=== PATIENT | female | born 1975 | race Caucasian/White ===

== ENCOUNTER → 2016-06-01 | Outpatient (CLI) | payer OTHER ==
[2016-06-01 13:38] LABS: CHLORIDE,CL 110 mmol/L (98-110); SODIUM,NA 143 mmol/L (136-146)
== END ==
LOC: MW.CHOBGYN 11:55
PROVIDERS: ATTEND Nurse Practitioner Women's Health
DX: R16.1 Splenomegaly, not elsewhere classified (principal)
CPT/HCPCS: 36415; 80053; 83615; 85025; 85610; 85652; 85730; 88104

== ENCOUNTER → 2016-06-16 | Outpatient (CLI) | payer OTHER ==
--- NOTE | 2016-06-16 10:55 | CR ---
EXAMINATION: Two-view chest (PA and Lateral views). HISTORY: Respiratory disorder. FINDINGS: The trachea is midline. The cardiomediastinal silhouette is within normal limits. No pulmonary infil trates, effusions or pneumothorax. Osseous structures appear unremarkable. IMPRESSION: No acute cardiopulmonary process.
== END ==
LOC: MW.CHOBGYN 10:21
PROVIDERS: ATTEND Nurse Practitioner Women's Health
DX: J98.8 Other specified respiratory disorders (principal)
CPT/HCPCS: 36415; 71020; 71020-26; 85025; 87804

== ENCOUNTER → 2016-06-22 | Outpatient (CLI) | payer OTHER ==
--- NOTE | 2016-06-22 10:46 | CR ---
EXAMINATION: Two-view chest (PA and Lateral views). HISTORY: Influenza. FINDINGS: The trachea is midline. The cardiomediastinal silhouette is within normal limits. No pulmonary infil trates, effusions or pneumothorax. Osseous structures appear unremarkable. IMPRESSION: No acute cardiopulmonary process.
== END ==
LOC: MW.CHOBGYN 09:55
PROVIDERS: ATTEND Nurse Practitioner Women's Health
DX: J10.1 Influenza due to other identified influenza virus with other respiratory manifestations (principal)
CPT/HCPCS: 71020; 71020-26

== ENCOUNTER 2016-07-12 04:00 | Emergency (ER) | payer OTHER ==
[2016-07-12] MEDS ORDERED: Ketorolac 60 MG/2 ML SDV IM ONE (04:44)
--- NOTE | 2016-07-12 05:19 | EDM.PDOC ---
ED HPI GENERAL MEDICAL PROBLEM - General Chief Complaint: Back Pain or Injury Stated Complaint: AMBULANCE Time Seen by Provider: 07/12/16 05:13 - History of Present Illness INITIAL COMMENTS - FREE TEXT/NARRATIVE: HISTORY AND PHYSICAL: History of present illness: Patient 41-year-old white female presents status post low back injury this occurred when she was handling the dog the dog pulled her down 5 stairs no numbness weakness patient denies incontinence in the emergency department patient states she has beers to urinate but is unable she reports no urinary retention prior to this episode Review of systems: As per history of present illness and below otherwise all systems reviewed and negative. Past medical history: As per history of present illness and as reviewed below otherwise noncontributory. Surgical history: As per history of present illness and as reviewed below otherwise noncontributory. Social history: No reported history of drug or alcohol abuse. Family history: As per history of present illness and as reviewed below otherwise noncontributory. Physical exam: HEENT: Atraumatic, normocephalic, pupils reactive, negative for conjunctival pallor or scleral icterus, mucous membranes moist, throat clear, neck supple, nontender, trachea midline. Lungs: Clear to auscultation, breath sounds equal bilaterally, chest nontender. Heart: S1S2, regular, negative for clicks, rubs, or JVD. Abdomen: Soft, nondistended, nontender. Negative for masses or hepatosplenomegaly. Negative for costovertebral tenderness. Pelvis: Stable nontender. Genitourinary: Deferred. Rectal: Normal tone sensory intact Extremities: Atraumatic, negative for cords or calf pain. Neurovascular unremarkable. Neuro: Awake, alert, oriented. Cranial nerves II through XII unremarkable. Cerebellum unremarkable. Motor and sensory unremarkable throughout. Exam nonfocal. Back: She had some mild tenderness in paravertebral region of the lumbar spine no vertebral body or point tenderness patient is able to stand on her toes back on her heels motor and sensory Limited but grossly unremarkable Diagnostics: X-ray lumbar Therapeutics: Toradol 60 mg IM Dilaudid 1 mg IV Zofran 4 mg IV Impression: #1 acute low back injury #2 history of degenerative disc disease #3 urinary retention Case discussed with [facility] and [place] one call discussion regarding clinical statement and likely need for imaging unavailable here transfer to emergency department via ground agreed-upon discussed with patient and significant other who agree Definitive disposition and diagnosis as appropriate pending reevaluation and review of above. lower back Pain Score (Numeric/FACES): 10 - Related Data Allergies Allergy/AdvReac Type Severity Reaction Status Date / Time acetaminophen [From Tylenol] Allergy Unknown Headache Verified 07/12/16 04:13 aspirin Allergy Unknown Swelling Verified 07/12/16 04:13 piroxicam [From Feldene] Allergy Unknown Swelling Verified 07/12/16 04:13 valacyclovir HCl Allergy Unknown Hallucinati Verified 07/12/16 04:13 [From Valtrex] ons surgical tape Allergy Mild Blisters Uncoded 07/12/16 04:13 Home Meds: Home Meds Omeprazole [Prilosec] 40 mg PO DAILY 07/02/13 [History] HYDROmorphone [Dilaudid] 2 mg PO ASDIRECTED PRN 04/09/16 [History] Diclofenac Sodium [Voltaren] 1 tab PO Q8HR 07/12/16 [History] Past Medical History - Past Health History Medical/Surgical History: Denies Medical/Surgical History Other HEENT History: wears glasses/contacts Cardiovascular History: Reports: None Respiratory History: Reports: Sleep apnea Other Respiratory History: Pt on CPAP at home Gastrointestinal History: Reports: GERD Genitourinary History: Reports: None 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: Reports: None Musculoskeletal History: Reports: Back pain, chronic Other Musculoskeletal History: states has herniated discs to back Neurological History: Reports: Migraines Psychiatric History: Reports: None Endocrine/Metabolic History: Reports: Obesity/BMI 30+ Hematologic History: Reports: None Immunologic History: Reports: None Oncologic (Cancer) History: Reports: None Dermatologic History: Reports: None - Infectious Disease History Infectious Disease History: Reports: None - Past Surgical History Head Surgeries/Procedures: Reports: None GI Surgical History: Reports: Cholecystectomy Female Surgical History: Reports: Hysterectomy Other Female Surgeries/Procedures: states "partial hysterectomy" Social & Family History - Family History Family Medical History: Noncontributory Cardiac: Reports: Heart failure, [place] Neurological: Reports: CVA - Tobacco Use Smoking Status *Q: Current Every Day Smoker Years of Tobacco use: 22 Packs/Tins Daily: 0.5 Used Tobacco, but Quit: No Second Hand Smoke Exposure: Yes - Caffeine Use Caffeine Use: Reports: Coffee, Energy drinks Caffeine Use Comment: 2drinks/day - Alcohol Use Days Per Week of Alcohol Use: 1 Number of Drinks Per Day: 3 Total Drinks Per Week: 3 - Recreational Drug Use Recreational Drug Use: No - Living Situation & Occupation Living situation: Reports: 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 ED EXAM, GENERAL - Physical Exam Exam: See Below (See dictation) Course - Vital Signs Last Recorded V/S: Last Vital Signs Temp 36.9 C 07/12/16 04:14 Pulse 86 07/12/16 04:14 Resp 20 07/12/16 04:14 BP 122/58 L 07/12/16 04:14 Pulse Ox 94 L 07/12/16 04:14 - Orders/Labs/Meds Orders: Active Orders 24 hr Category Date Time Status Lumbar Spine 2 or 3V [CR] Stat Exams 07/12/16 04:22 Taken Meds: Medications Discontinued Medications Generic Name Dose Route Start Last Admin Trade Name Freq PRN Reason Stop Dose Admin Ketorolac Tromethamine 60 mg 07/12/16 04:44 07/12/16 04:49 Toradol IM 07/12/16 04:45 60 mg ONETIME ONE Administration Departure - Departure Time of Disposition: 05:52 Disposition: DC/Tfer to Acute Hospital 02 Condition: undetermined Clinical Impression: Low back pain, Urinary retention Forms: ED Department Discharge - My Orders Last 24 Hours: My Active Orders 07/12/16 04:22 Lumbar Spine 2 or 3V [CR] Stat - Assessment/Plan Last 24 Hours: My Active Orders 07/12/16 04:22 Lumbar Spine 2 or 3V [CR] Stat
[2016-07-12] MEDS ORDERED: HYDROmorphone 2 MG/ML Syringe IVPUSH ONE (05:53)
[2016-07-12] MEDS ORDERED: Ondansetron 4 MG/2 ML SDV IVPUSH ONE (05:53)
[2016-07-12] MEDS ORDERED: Sodium Chloride 0.9% 1,000 ML IV SCH (06:00)
[2016-07-12 07:00] VITALS: BP 118/69
--- NOTE | 2016-07-13 10:42 | CR ---
EXAM DATE: 07/12/16 PATIENT'S AGE: 41 Patient: RIGO REINA Facility: [place], [place] Site . Site : 1975 Study: XRay Spine Lumbar [id number]/[id number] 5:14:18 AM Ordering Physician: Doctor Baker Final Report: HISTORY: Fall, low back pain. TECHNIQUE: Three views of the lumbar spine. COMPARISON: 05/25/2014. FINDINGS: Five lumbar type vertebral bodies. There is no lumbar fracture or malalignment. Loss of intervertebral disc height at L5-S1 greater than L4-L5 as before. IMPRESSION: 1. No acute fracture. 2. Degenerative disc disease within the lumbar spine. Dictated by Demetrius Deras MD @ 07/12/2016 5:47:13 AM Dictated by: Demetirus Deras MD @ 07/12/2016 05:47:18 (Electronic Signature) Report Signed by Proxy and Original Signed Document filed in the Medical Record. TIKA
== END 2016-07-12 06:50 ==
LOC: MW.ED 04:00
DX: S39.92XA Unspecified injury of lower back, initial encounter (principal); R33.9 Retention of urine, unspecified; K21.9 Gastro-esophageal reflux disease without esophagitis; E66.9 Obesity, unspecified; F17.210 Nicotine dependence, cigarettes, uncomplicated; Z79.82 Long term (current) use of aspirin; Z88.8 Allergy status to other drugs, medicaments and biological substances; Z88.6 Allergy status to analgesic agent; Z79.899 Other long term (current) drug therapy; Z90.49 Acquired absence of other specified parts of digestive tract; Z90.710 Acquired absence of both cervix and uterus; W10.9XXA Fall (on) (from) unspecified stairs and steps, initial encounter
CPT/HCPCS: 51702; 72100; 96372; 96374; 96375; 99284; J1170; J1885; J2405; J7040; 99285

== ENCOUNTER → 2016-07-21 | Outpatient (CLI) | payer OTHER ==
[2016-07-21 10:28] LABS: CHLORIDE,CL 109 mmol/L (98-110); SODIUM,NA 141 mmol/L (136-146)
== END ==
LOC: MW.CHOBGYN 09:54
PROVIDERS: ATTEND Nurse Practitioner Women's Health
DX: M79.1 Myalgia (principal)
CPT/HCPCS: 36415; 80053; 85652; 86038; 86140; 86430; 86618

== ENCOUNTER → 2016-08-10 | Outpatient (CLI) | payer OTHER | LOC: MW.CHOBGYN 15:12 | PROVIDERS: ATTEND Nurse Practitioner Women's Health | DX: R10.9 Unspecified abdominal pain (principal) | CPT/HCPCS: 81001 ==

== ENCOUNTER 2017-06-13 22:34 | Emergency (ER) | payer OTHER ==
[2017-06-13] MEDS ORDERED: Ondansetron 4 MG/2 ML SDV IVPUSH ONE (22:37)
[2017-06-13] MEDS ORDERED: Sodium Chloride 0.9% 1,000 ML IV ONE (22:37)
--- NOTE | 2017-06-13 22:39 | EDM.PDOC ---
ED HPI GENERAL MEDICAL PROBLEM - General Chief Complaint: Gastrointestinal Problem Stated Complaint: PT HAS FLU SYMPTOMS Time Seen by Provider: 06/13/17 22:36 - History of Present Illness INITIAL COMMENTS - FREE TEXT/NARRATIVE: HISTORY AND PHYSICAL: History of present illness: Patient 42-year-old female presents with concern vomiting diarrhea 1 week she' s had body aches states she's had no fever no cough shortness breath or other concern Review of systems: As per history of present illness and below otherwise all systems reviewed and negative. Past medical history: As per history of present illness and as reviewed below otherwise noncontributory. Surgical history: As per history of present illness and as reviewed below otherwise noncontributory. Social history: No reported history of drug or alcohol abuse. Family history: As per history of present illness and as reviewed below otherwise noncontributory. Physical exam: HEENT: Atraumatic, normocephalic, pupils reactive, negative for conjunctival pallor or scleral icterus, mucous membranes dry, throat clear, neck supple, nontender, trachea midline. Lungs: Clear to auscultation, breath sounds equal bilaterally, chest nontender. Heart: S1S2, regular, negative for clicks, rubs, or JVD. Abdomen: Soft, nondistended, nontender. Negative for masses or hepatosplenomegaly. Negative for costovertebral tenderness. Pelvis: Stable nontender. Genitourinary: Deferred. Rectal: Deferred. Extremities: Atraumatic, negative for cords or calf pain. Neurovascular unremarkable. Neuro: Awake, alert, oriented. Cranial nerves II through XII unremarkable. Cerebellum unremarkable. Motor and sensory unremarkable throughout. Exam nonfocal. Diagnostics: CBC CMP influenza screen Therapeutics: saline 1 L bolus Zofran 4 mg IV Impression: #1 vomiting/diarrhea with dehydration #2 viral syndrome Definitive disposition and diagnosis as appropriate pending reevaluation and review of above. - Related Data Allergies Allergy/AdvReac Type Severity Reaction Status Date / Time acetaminophen [From Tylenol] Allergy Unknown Headache Verified 07/12/16 04:13 aspirin Allergy Unknown Swelling Verified 07/12/16 04:13 piroxicam [From Feldene] Allergy Unknown Swelling Verified 07/12/16 04:13 valacyclovir HCl Allergy Unknown Hallucinati Verified 07/12/16 04:13 [From Valtrex] ons surgical tape Allergy Mild Blisters Uncoded 07/12/16 04:13 Home Meds: Home Meds Omeprazole [Prilosec] 40 mg PO DAILY 07/02/13 [History] HYDROmorphone [Dilaudid] 2 mg PO ASDIRECTED PRN 04/09/16 [History] Diclofenac Sodium [Voltaren] 1 tab PO Q8HR 07/12/16 [History] Past Medical History - Past Health History Medical/Surgical History: Denies Medical/Surgical History Other HEENT History: wears glasses/contacts Cardiovascular History: Reports: None Respiratory History: Reports: Sleep Apnea Other Respiratory History: Pt on CPAP at home Gastrointestinal History: Reports: GERD Genitourinary History: Reports: None 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 Musculoskeletal History: Reports: Back Pain, Chronic Other Musculoskeletal History: states has herniated discs to back Neurological History: Reports: Migraines Psychiatric History: Reports: None Endocrine/Metabolic History: Reports: Obesity/BMI 30+ Hematologic History: Reports: None Immunologic History: Reports: None Oncologic (Cancer) History: Reports: None Dermatologic History: Reports: None - Infectious Disease History Infectious Disease History: Reports: None - Past Surgical History Head Surgeries/Procedures: Reports: None GI Surgical History: Reports: Cholecystectomy Female Surgical History: Reports: Hysterectomy Other Female Surgeries/Procedures: states "partial hysterectomy" Social & Family History - Family History Family Medical History: Noncontributory Cardiac: Reports: Heart Failure, [place] Neurological: Reports: CVA - Tobacco Use Smoking Status *Q: Current Every Day Smoker Years of Tobacco use: 22 Packs/Tins Daily: 0.5 Used Tobacco, but Quit: No Second Hand Smoke Exposure: Yes - Caffeine Use Caffeine Use: Reports: Coffee, Energy Drinks Caffeine Use Comment: 2drinks/day - Alcohol Use Days Per Week of Alcohol Use: 1 Number of Drinks Per Day: 3 Total Drinks Per Week: 3 - Recreational Drug Use Recreational Drug Use: No - Living Situation & Occupation Living situation: Reports: Occupation: Employed ED ROS GENERAL - Review of Systems Review Of Systems: ROS reveals no pertinent complaints other than HPI. ED EXAM, GENERAL - Physical Exam Exam: See Below (dictation) Departure - Departure Time of Disposition: 22:38 Disposition: Home, Self-Care 01 Condition: Good Clinical Impression: Vomiting, Diarrhea, Dehydration - Discharge Information Additional Instructions: The following information is given to patients seen in the emergency department who are being discharged to home. This information is to outline your options for follow-up care. We provide all patients seen in our emergency department with a follow-up referral. The need for follow-up, as well as the timing and circumstances, are variable depending upon the specifics of your emergency department visit. If you don't have a primary care physician on staff, we will provide you with a referral. We always advise you to contact your personal physician following an emergency department visit to inform them of the circumstance of the visit and for follow-up with them and/or the need for any referrals to a consulting specialist. The emergency department will also refer you to a specialist when appropriate. This referral assures that you have the opportunity for followup care with a specialist. All of these measure are taken in an effort to provide you with optimal care, which includes your followup. Under all circumstances we always encourage you to contact your private physician who remains a resource for coordinating your care. When calling for followup care, please make the office aware that this follow-up is from your recent emergency room visit. If for any reason you are refused follow-up, please contact the [facility] emergency department at and asked to speak to the emergency department charge nurse. Fluids clear liquids as directed follow-up private medical doctor as needed as discussed return as needed as discussed]
[2017-06-13 23:14] LABS: CHLORIDE,CL 104 mmol/L (98-107); SODIUM,NA 138 mmol/L (136-145)
[2017-06-14 00:23] VITALS: BP 147/93
== END 2017-06-14 00:15 | disposition home or self-care (01) ==
LOC: MW.ED 22:34
DX: B34.9 Viral infection, unspecified (principal); R19.7 Diarrhea, unspecified; E86.0 Dehydration; Z88.8 Allergy status to other drugs, medicaments and biological substances; Z91.048 Other nonmedicinal substance allergy status
CPT/HCPCS: 36415; 80053; 85025; 87804; 96361; 96374; 99284; J2405; J7040

== ENCOUNTER 2017-07-29 12:37 | Emergency (ER) | payer OTHER ==
--- NOTE | 2017-07-29 13:06 | EDM.PDOC ---
ED HPI GENERAL MEDICAL PROBLEM - General Chief Complaint: Bite:Animal, Insect Stated Complaint: GOT BIT BY A DOG Time Seen by Provider: 07/29/17 13:06 Source of Information: Reports: Patient History Limitations: Reports: No Limitations - History of Present Illness INITIAL COMMENTS - FREE TEXT/NARRATIVE: HISTORY AND PHYSICAL: History of present illness: Patient is a 42-year-old female who presents to the emergency room with complaints of a dog bite to her right anterior narvaez. 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 This dog's rabies vaccination status is unknown. Jessica has had a full rabies series completed in 2016. Her tetanus is up to date. Denies any numbness, tingling, fever, chills or shortness of breath. Review of systems: As per history of present illness and below otherwise all systems reviewed and negative. Past medical history: As per history of present illness and as reviewed below otherwise noncontributory. Surgical history: As per history of present illness and as reviewed below otherwise noncontributory. Social history: No reported history of drug or alcohol abuse. Family history: As per history of present illness and as reviewed below otherwise noncontributory. Physical exam: General: Well developed and well-nourished 42-year-old female. Alert and oriented. Nontoxic appearing and in no acute distress. HEENT: Atraumatic, normocephalic, pupils equal and reactive bilaterally, negative for conjunctival pallor or scleral icterus, mucous membranes moist, throat clear, neck supple, nontender, trachea midline. No drooling or trismus noted. No meningeal signs Lungs: Clear to auscultation, breath sounds equal bilaterally, chest nontender. Heart: S1S2, regular rate and rhythm without overt murmur Abdomen: Soft, nondistended, nontender. Negative for masses or hepatosplenomegaly. Negative for costovertebral tenderness. Pelvis: Stable nontender. Genitourinary: Deferred. Rectal: Deferred. Skin: Puncture wound/abrasion noted to right anterior narvaez. No surrounding erythema or soft tissue swelling noted. Otherwise skin is intact, warm, dry. No lesions or rashes noted. Extremities: Atraumatic, negative for cords or calf pain. Neurovascular unremarkable. Neuro: Awake, alert, oriented. Cranial nerves II through XII unremarkable. Cerebellum unremarkable. Motor and sensory unremarkable throughout. Exam nonfocal. Notes: Patient previously completed a full rabies series in 2016. According to the CDC and Up-to-date whom was previously vaccinated: needs 1 dose of the vaccine (IM in deltoid area) on day 0 and a second dose on day 3. This was called and verified with our pharmacy. Please see the patient on Augmentin. Wound care was provided. Signs and symptoms that would prompt her to come back to the emergency room were discussed. She voices understanding and is agreeable to plan of care. Denies any further questions at this time. Diagnostics: [] Therapeutics: Wound Care, Rabies Vaccine, Bacitracin Impression: Animal bite Plan: Keep the area clean and dry. Take your antibiotic as directed. Tylenol and/or ibuprofen as needed for pain management You need a repeat vaccine on 08/01/2017 (order was provided for you) Follow-up with your primary caregiver in the next 1-2 days. Return to the ED as needed and as discussed. Definitive disposition and diagnosis as appropriate pending reevaluation and review of above. Onset: Today Duration: Hour(s): Location: Reports: Lower Extremity, Right Right Leg Pain Score (Numeric/FACES): 3 - Related Data Allergies Allergy/AdvReac Type Severity Reaction Status Date / Time acetaminophen [From Tylenol] Allergy Unknown Headache Verified 07/29/17 13:07 aspirin Allergy Unknown Swelling Verified 07/29/17 13:07 piroxicam [From Feldene] Allergy Unknown Swelling Verified 07/29/17 13:07 valacyclovir HCl Allergy Unknown Hallucinati Verified 07/29/17 13:07 [From Valtrex] ons surgical tape Allergy Mild Blisters Uncoded 07/29/17 13:07 Home Meds: Home Meds Omeprazole [Prilosec] 20 mg PO DAILY 07/02/13 [History] Diclofenac Sodium [Voltaren] 1 tab PO BID 07/12/16 [History] Control 1 tab PO DAILY 06/13/17 [History] Pregabalin [Lyrica] 0 mg PO BID 06/13/17 [History] Past Medical History - Past Health History Medical/Surgical History: Denies Medical/Surgical History Other HEENT History: wears glasses/contacts Cardiovascular History: Reports: None Respiratory History: Reports: Sleep Apnea Other Respiratory History: Pt on CPAP at home Gastrointestinal History: Reports: GERD Genitourinary History: Reports: None 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 Musculoskeletal History: Reports: Back Pain, Chronic Other Musculoskeletal History: states has herniated discs to back Neurological History: Reports: Migraines Psychiatric History: Reports: None Endocrine/Metabolic History: Reports: Obesity/BMI 30+ Hematologic History: Reports: None Immunologic History: Reports: None Oncologic (Cancer) History: Reports: None Dermatologic History: Reports: None - Infectious Disease History Infectious Disease History: Reports: None - Past Surgical History Head Surgeries/Procedures: Reports: None GI Surgical History: Reports: Cholecystectomy Female Surgical History: Reports: Hysterectomy Other Female Surgeries/Procedures: states "partial hysterectomy" Social & Family History - Family History Family Medical History: Noncontributory Cardiac: Reports: Heart Failure, [place] Neurological: Reports: CVA - Caffeine Use Caffeine Use: Reports: Coffee, Energy Drinks Caffeine Use Comment: 2drinks/day - Living Situation & Occupation Living situation: Reports: Occupation: Employed ED ROS GENERAL - Review of Systems Review Of Systems: ROS reveals no pertinent complaints other than HPI. ED EXAM, ANIMAL BITE - Physical Exam Exam: See Below (See dictation) Course - Vital Signs Last Recorded V/S: Last Vital Signs Temp 96.6 F 07/29/17 13:03 Pulse 59 L 07/29/17 13:03 Resp 18 07/29/17 13:03 BP 195/78 H 07/29/17 13:03 Pulse Ox 98 07/29/17 13:03 - Orders/Labs/Meds Orders: Active Orders 24 hr Category Date Time Status Communication Order [RC] STAT Care 07/29/17 13:25 Active Vaccines to be Administered [RC] PER UNIT ROUTINE Care 07/29/17 13:17 Active Meds: Medications Discontinued Medications Generic Name Dose Route Start Last Admin Trade Name Freq PRN Reason Stop Dose Admin Bacitracin 1 dose 07/29/17 13:26 07/29/17 13:36 Bacitracin Oint 1 Gm TOP 07/29/17 13:27 1 dose ONETIME ONE Administration Rabies Vaccine 2.5 unit 07/29/17 13:16 07/29/17 13:33 Rabavert IM 07/29/17 13:17 2.5 unit .ONCE ONE Administration Departure - Departure Time of Disposition: 13:23 Disposition: Home, Self-Care 01 Clinical Impression: Animal bite wound - Discharge Information Instructions: Animal Bite, [id number] Referrals: Vero Harrison FILE DRAWER FINISHER [Primary Care Provider] - Forms: ED Department Discharge Additional Instructions: The following information is given to patients seen in the emergency department who are being discharged to home. This information is to outline your options for follow-up care. We provide all patients seen in our emergency department with a follow-up referral. The need for follow-up, as well as the timing and circumstances, are variable depending upon the specifics of your emergency department visit. If you don't have a primary care physician on staff, we will provide you with a referral. We always advise you to contact your personal physician following an emergency department visit to inform them of the circumstance of the visit and for follow-up with them and/or the need for any referrals to a consulting specialist. The emergency department will also refer you to a specialist when appropriate. This referral assures that you have the opportunity for follow-up care with a specialist. All of these measure are taken in an effort to provide you with optimal care, which includes your follow-up. Under all circumstances we always encourage you to contact your private physician who remains a resource for coordinating your care. When calling for follow-up care, please make the office aware that this follow-up is from your recent emergency room visit. If for any reason you are refused follow-up, please contact the [facility] Emergency Department at and asked to speak to the emergency department charge nurse. [facility] [address] [place] [id number] Keep the area clean and dry. Take your antibiotic as directed. Tylenol and/or ibuprofen as needed for pain management You need a repeat vaccine on 08/01/2017 Follow-up with your primary caregiver in the next 1-2 days. Return to the ED as needed and as discussed. - My Orders Last 24 Hours: My Active Orders 07/29/17 13:17 Vaccines to be Administered [RC] PER UNIT ROUTINE 07/29/17 13:25 Communication Order [RC] STAT - Assessment/Plan Last 24 Hours: My Active Orders 07/29/17 13:17 Vaccines to be Administered [RC] PER UNIT ROUTINE 07/29/17 13:25 Communication Order [RC] STAT
[2017-07-29] MEDS ORDERED: Rabies Vaccine (Avian) 2.5 Unit Inj Kit IM ONE (13:16)
[2017-07-29] MEDS ORDERED: Bacitracin Oint 1 GM U/D Packet TOP ONE (13:26)
[2017-07-29 14:19] VITALS: BP 143/98
== END 2017-07-29 14:07 | disposition home or self-care (01) ==
LOC: MW.ED 12:37
DX: S81.851A Open bite, right lower leg, initial encounter (principal); Z88.6 Allergy status to analgesic agent; Z88.8 Allergy status to other drugs, medicaments and biological substances; Z79.899 Other long term (current) drug therapy; Z23 Encounter for immunization; W54.0XXA Bitten by dog, initial encounter
CPT/HCPCS: 90471; 90675; 99283-25

== ENCOUNTER 2017-10-30 17:06 | Emergency (ER) | payer OTHER ==
[2017-10-30 17:16] VITALS: BP 129/86
--- NOTE | 2017-10-30 17:26 | EDM.PDOC ---
ED HPI GENERAL MEDICAL PROBLEM - General Chief Complaint: Genitourinary Problem Stated Complaint: UNABLE TO URINATE Time Seen by Provider: 10/30/17 17:24 Source of Information: Reports: Patient History Limitations: Reports: No Limitations - History of Present Illness INITIAL COMMENTS - FREE TEXT/NARRATIVE: HISTORY AND PHYSICAL: History of present illness: Patient is a 42-year-old female who presents to the emergency room with complaints of dysuria, pelvic pressure and frequency over the past 24 hours. She states she was treated on 10/18/17 for a UTI with Macrobid and felt that her symptoms improved. She has completed her antibiotics 4 days ago and had been feeling well until yesterday. Eyes any fever, chills, chest pain, shortness of breath or cough. Denies any abdominal pain, nausea, vomiting, diarrhea or constipation. Denies any history of diabetes. Review of systems: As per history of present illness and below otherwise all systems reviewed and negative. Past medical history: As per history of present illness and as reviewed below otherwise noncontributory. Surgical history: As per history of present illness and as reviewed below otherwise noncontributory. Social history: No reported history of drug or alcohol abuse. Family history: As per history of present illness and as reviewed below otherwise noncontributory. Physical exam: General: Well-developed and well-nourished 42-year-old female. Alert and oriented. Nontoxic appearing and in no acute distress. HEENT: Atraumatic, normocephalic, pupils equal and reactive bilaterally, negative for conjunctival pallor or scleral icterus, mucous membranes moist, throat clear, neck supple, nontender, trachea midline. No drooling or trismus noted. No meningeal signs Lungs: Clear to auscultation, breath sounds equal bilaterally, chest nontender. Heart: S1S2, regular rate and rhythm without overt murmur Abdomen: Soft, nondistended, nontender. Negative for masses or hepatosplenomegaly. Negative for costovertebral tenderness. Pelvis: Stable nontender. Genitourinary: Deferred. Rectal: Deferred. Skin: Intact, warm, dry. No lesions or rashes noted. Extremities: Atraumatic, negative for cords or calf pain. Neurovascular unremarkable. Neuro: Awake, alert, oriented. Cranial nerves II through XII unremarkable. Cerebellum unremarkable. Motor and sensory unremarkable throughout. Exam nonfocal. Notes: Patient expresses concern as this is her second UTI ever. She has never previously had any genitourinary problems or concerns. Bedside glucose is 80 Patient does have a UTI. She has no fever or flank pain. Will do outpatient oral antibiotics. 1 g Rocephin IM here Cipro 500 mg twice a day 7 days. Urine culture was added. Ends and symptoms that would prompt her to return to the emergency room were reviewed and discussed. She voices understanding and is agreeable to plan of care. Denies any further questions at this time. Diagnostics: UA, blood glucose Therapeutics: Roceftin 1 g IM Prescription: Cipro Pyridium Impression: UTI Plan: 1. Take your medication as directed. 2. Increase your oral fluids. 3. Follow-up with your primary caregiver in the next 1-2 days. Return to the ED as needed and as discussed. Definitive disposition and diagnosis as appropriate pending reevaluation and review of above. Duration: Day(s): Location: Reports: Pelvis Urethra Pain Score (Numeric/FACES): 10 - Related Data Allergies Allergy/AdvReac Type Severity Reaction Status Date / Time acetaminophen [From Tylenol] Allergy Unknown Headache Verified 10/30/17 17:16 aspirin Allergy Unknown Swelling Verified 10/30/17 17:16 piroxicam [From Feldene] Allergy Unknown Swelling Verified 10/30/17 17:16 valacyclovir HCl Allergy Unknown Hallucinati Verified 10/30/17 17:16 [From Valtrex] ons surgical tape Allergy Mild Blisters Uncoded 10/30/17 17:16 Home Meds: Home Meds Omeprazole [Prilosec] 20 mg PO DAILY 07/02/13 [History] Pregabalin [Lyrica] 100 mg PO BID 06/13/17 [History] Ciprofloxacin HCl [Cipro] 500 mg PO BID #14 tablet 10/30/17 [Rx] Ergocalciferol (Vitamin D2) [Vitamin D2] 800 unit PO DAILY 10/30/17 [History] Phenazopyridine [Pyridium] 100 mg PO TID PRN 2 Days #6 tab 10/30/17 [Rx] Turmeric Root Extract [Turmeric] 500 mg PO DAILY 10/30/17 [History] Vitamin B Complex & Vit C No.4 [Super B Complex] 150 mg PO DAILY 10/30/17 [ History] Past Medical History - Past Health History Medical/Surgical History: Denies Medical/Surgical History HEENT History: Reports: Other (See Below) Other HEENT History: wears glasses/contacts Cardiovascular History: Reports: None Respiratory History: Reports: Sleep Apnea Other Respiratory History: Pt on CPAP at home Gastrointestinal History: Reports: GERD Genitourinary History: Reports: None HEALTH ANALYST History: Reports: None Musculoskeletal History: Reports: Back Pain, Chronic Other Musculoskeletal History: states has herniated discs to back Neurological History: Reports: Migraines Psychiatric History: Reports: None Endocrine/Metabolic History: Reports: Obesity/BMI 30+ Hematologic History: Reports: None Immunologic History: Reports: None Oncologic (Cancer) History: Reports: None Dermatologic History: Reports: None - Infectious Disease History Infectious Disease History: Reports: Measles - Past Surgical History Head Surgeries/Procedures: Reports: None GI Surgical History: Reports: Cholecystectomy Female Surgical History: Reports: Hysterectomy Other Female Surgeries/Procedures: states "partial hysterectomy" Social & Family History - Family History Family Medical History: Noncontributory Cardiac: Reports: Heart Failure, [place] Neurological: Reports: CVA - Tobacco Use Smoking Status *Q: Current Every Day Smoker Years of Tobacco use: 29 Packs/Tins Daily: 1 - Caffeine Use Caffeine Use: Reports: Coffee Caffeine Use Comment: 2drinks/day - Recreational Drug Use Recreational Drug Use: No - Living Situation & Occupation Living situation: Reports: Occupation: Employed ED ROS GENERAL - Review of Systems Review Of Systems: ROS reveals no pertinent complaints other than HPI. ED EXAM, RENAL/ - Physical Exam Exam: See Below (See dictation) Course - Vital Signs Last Recorded V/S: Last Vital Signs Temp 97.5 F 10/30/17 17:14 Pulse 70 10/30/17 17:14 Resp 12 10/30/17 17:14 BP 129/86 10/30/17 17:14 Pulse Ox 95 10/30/17 17:14 - Orders/Labs/Meds Orders: Active Orders 24 hr Category Date Time Status Glucose [Blood Glucose Check, Bedside] [RC] ONETIME Care 10/30/17 17:47 Active CULTURE URINE [RM] Stat Lab 10/30/17 18:01 Ordered UA W/MICROSCOPIC [URIN] Stat Lab 10/30/17 17:25 Ordered Labs: Laboratory Tests 10/30/17 10/30/17 Range/Units 17:25 17:49 POC Glucose 80 (60-110) mg/dL Urine Color YELLOW Urine Appearance SLT CLOUDY Urine pH 6.0 (5.0-8.0) Ur Specific [place] 1.025 (1.001-1.035) Urine Protein TRACE (NEGATIVE) mg/dL Urine Glucose (UA) NEGATIVE (NEGATIVE) mg/dL Urine Ketones NEGATIVE (NEGATIVE) mg/dL Urine Occult Blood SMALL H (NEGATIVE) Urine Nitrite POSITIVE H (NEGATIVE) Urine Bilirubin NEGATIVE (NEGATIVE) Urine Urobilinogen 0.2 (<2.0) EU/dL Ur Leukocyte Esterase LARGE (NEGATIVE) Urine RBC 2-4 (0-2/HPF) Urine WBC TO NUMEROUS TO COUNT H (0-5/HPF) Ur Epithelial Cells FEW (NONE-FEW) Urine Bacteria 1+ H (NEGATIVE) Meds: Medications Discontinued Medications Generic Name Dose Route Start Last Admin Trade Name Freq PRN Reason Stop Dose Admin Ceftriaxone Sodium 1,000 mg/ 4 mls @ 4 mls/sec 10/30/17 18:01 Lidocaine HCl IM 10/30/17 18:02 ONETIME ONE Departure - Departure Time of Disposition: 18:06 Disposition: Home, Self-Care 01 Clinical Impression: UTI, Urinary tract infectious disease - Discharge Information Prescriptions: Ciprofloxacin HCl [Cipro] 500 mg PO BID #14 tablet Phenazopyridine [Pyridium] 100 mg PO TID PRN 2 Days #6 tab PRN Reason: Dysuria Instructions: Urinary Tract Infection, Adult, [id number] Referrals: PCP,None [Primary Care Provider] - Forms: ED Department Discharge Additional Instructions: The following information is given to patients seen in the emergency department who are being discharged to home. This information is to outline your options for follow-up care. We provide all patients seen in our emergency department with a follow-up referral. The need for follow-up, as well as the timing and circumstances, are variable depending upon the specifics of your emergency department visit. If you don't have a primary care physician on staff, we will provide you with a referral. We always advise you to contact your personal physician following an emergency department visit to inform them of the circumstance of the visit and for follow-up with them and/or the need for any referrals to a consulting specialist. The emergency department will also refer you to a specialist when appropriate. This referral assures that you have the opportunity for follow-up care with a specialist. All of these measure are taken in an effort to provide you with optimal care, which includes your follow-up. Under all circumstances we always encourage you to contact your private physician who remains a resource for coordinating your care. When calling for follow-up care, please make the office aware that this follow-up is from your recent emergency room visit. If for any reason you are refused follow-up, please contact the [facility] Emergency Department at and asked to speak to the emergency department charge nurse. [facility] [address] [place] [id number] Take the antibiotic as directed. (Received Rocephin IM while here) Increase her oral fluids. Follow-up with your primary care provider in the next 1-2 days. Return to the ED as needed and as discussed. - My Orders Last 24 Hours: My Active Orders 10/30/17 17:25 UA W/MICROSCOPIC [URIN] Stat 10/30/17 17:47 Glucose [Blood Glucose Check, Bedside] [RC] ONETIME 10/30/17 18:01 CULTURE URINE [RM] Stat - Assessment/Plan Last 24 Hours: My Active Orders 10/30/17 17:25 UA W/MICROSCOPIC [URIN] Stat 10/30/17 17:47 Glucose [Blood Glucose Check, Bedside] [RC] ONETIME 10/30/17 18:01 CULTURE URINE [RM] Stat
[2017-10-30] MEDS ORDERED: cefTRIAXone 1,000 MG in Lidocaine 1% 4 ML IM ONE (18:01)
== END 2017-10-30 18:21 | disposition home or self-care (01) ==
LOC: MW.ED 17:06
DX: N39.0 Urinary tract infection, site not specified (principal); E66.9 Obesity, unspecified; F17.210 Nicotine dependence, cigarettes, uncomplicated; Z88.8 Allergy status to other drugs, medicaments and biological substances; Z79.899 Other long term (current) drug therapy
CPT/HCPCS: 81001; 82962; 87086; 87088; 87186; 96372; 99283; J0696; J2001

== ENCOUNTER 2017-12-08 10:57 | Emergency (ER) | payer OTHER ==
--- NOTE | 2017-12-08 11:03 | EDM.PDOC ---
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 Apparently the post was cut off flush with no jagged edges sounds to be a sick 4-6 inch post, after exposing her back and logrolling there is no open lesion seems to be a blunt for she is tender between her shoulder blades with palpation there is no bruising or open lesion or neuro deficits, patient arrives with c-collar she also complains of neck pain No chest pain shortness breath headache dizziness palpitation no bowel or urine symptoms ] Review of systems: As per history of present illness and below otherwise all systems reviewed and negative. Past medical history: As per history of present illness and as reviewed below otherwise noncontributory. Surgical history: As per history of present illness and as reviewed below otherwise noncontributory. Social history: No reported history of drug or alcohol abuse. Family history: As per history of present illness and as reviewed below otherwise noncontributory. Physical exam: HEENT: Atraumatic, normocephalic, pupils reactive, negative for conjunctival pallor or scleral icterus, mucous membranes moist, throat clear, neck supple, nontender, trachea midline. Lungs: Clear to auscultation, breath sounds equal bilaterally, chest nontender. Heart: S1S2, regular, negative for clicks, rubs, or JVD. Abdomen: Soft, nondistended, nontender. Negative for masses or hepatosplenomegaly. Negative for costovertebral tenderness. Pelvis: Stable nontender. Genitourinary: Deferred. Rectal: Deferred. Extremities: Atraumatic, negative for cords or calf pain. Neurovascular unremarkable. Neuro: Awake, alert, oriented. Cranial nerves II through XII unremarkable. Cerebellum unremarkable. Motor and sensory unremarkable throughout. Exam nonfocal. Musculoskeletal tender along the thoracic spine between the shoulder blades Diagnostics: [Chest 1 view cervical spine no contrast CT] thoracic spine no contrast Therapeutics: Fentanyl 100 g intranasal route per EMS [place] 5 per 325 #30 no refill Rest ice PRIMARY care 2 weeks sooner as needed Patient was able to get up and go to the bathroom return to bed offered admission for observation ,refused desires to return home Impression: Contusion thoracic spine Muscle spasm Pain secondary to above] Definitive disposition and diagnosis as appropriate pending reevaluation and review of above. upper back, between shoulder blades Pain Score (Numeric/FACES): 7 - Related Data Allergies Allergy/AdvReac Type Severity Reaction Status Date / Time acetaminophen [From Tylenol] Allergy Unknown Headache Verified 12/08/17 11:10 aspirin Allergy Unknown Swelling Verified 12/08/17 11:10 piroxicam [From Feldene] Allergy Unknown Swelling Verified 12/08/17 11:10 valacyclovir HCl Allergy Unknown Hallucinati Verified 12/08/17 11:10 [From Valtrex] ons surgical tape Allergy Mild Blisters Uncoded 12/08/17 11:10 Home Meds: Home Meds Omeprazole [Prilosec] 20 mg PO DAILY 07/02/13 [History] Pregabalin [Lyrica] 100 mg PO BID 06/13/17 [History] Ciprofloxacin HCl [Cipro] 500 mg PO BID #14 tablet 10/30/17 [Rx] Ergocalciferol (Vitamin D2) [Vitamin D2] 800 unit PO DAILY 10/30/17 [History] Phenazopyridine [Pyridium] 100 mg PO TID PRN 2 Days #6 tab 10/30/17 [Rx] Turmeric Root Extract [Turmeric] 500 mg PO DAILY 10/30/17 [History] Vitamin B Complex & Vit C No.4 [Super B Complex] 150 mg PO DAILY 10/30/17 [ History] Past Medical History - Past Health History Medical/Surgical History: Denies Medical/Surgical History HEENT History: Reports: Other (See Below) Other HEENT History: wears glasses/contacts Cardiovascular History: Reports: None Respiratory History: Reports: Sleep Apnea Other Respiratory History: Pt on CPAP at home Gastrointestinal History: Reports: GERD Genitourinary History: Reports: None 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 Musculoskeletal History: Reports: Back Pain, Chronic Other Musculoskeletal History: states has herniated discs to back Neurological History: Reports: Migraines Psychiatric History: Reports: None Endocrine/Metabolic History: Reports: Obesity/BMI 30+ Hematologic History: Reports: None Immunologic History: Reports: None Oncologic (Cancer) History: Reports: None Dermatologic History: Reports: None - Infectious Disease History Infectious Disease History: Reports: Measles - Past Surgical History Head Surgeries/Procedures: Reports: None GI Surgical History: Reports: Cholecystectomy Female Surgical History: Reports: Hysterectomy Other Female Surgeries/Procedures: states "partial hysterectomy" Social & Family History - Family History Family Medical History: Noncontributory Cardiac: Reports: Heart Failure, [place] Neurological: Reports: CVA - Caffeine Use Caffeine Use: Reports: Coffee Caffeine Use Comment: 2drinks/day - Living Situation & Occupation Living situation: Reports: Occupation: Employed ED ROS GENERAL - Review of Systems Review Of Systems: See Below ED EXAM, GENERAL - Physical Exam Exam: See Below Course - Vital Signs Last Recorded V/S: Last Vital Signs Temp 96.7 F 12/08/17 10:59 Pulse 57 L 12/08/17 10:59 Resp 18 12/08/17 10:59 BP 125/80 12/08/17 10:59 Pulse Ox 99 12/08/17 10:59 - Orders/Labs/Meds Labs: Laboratory Tests 12/08/17 12/08/17 12/08/17 Range/Units 11:52 11:55 13:15 WBC 11.11 H (4.0-11.0) K/uL RBC 4.86 (4.30-5.90) M/uL Hgb 14.5 (12.0-16.0) g/dL Hct 42.5 (36.0-46.0) % MCV 87.4 (80.0-98.0) fL MCH 29.8 (27.0-32.0) pg MCHC 34.1 (31.0-37.0) g/dL RDW Std Deviation 46.5 (28.0-62.0) fl RDW Coeff of Katty 15 (11.0-15.0) % Plt Count 273 (150-400) K/uL MPV 10.40 (7.40-12.00) fL Neut % (Auto) 70.4 (48.0-80.0) % Lymph % (Auto) 20.2 (16.0-40.0) % [place] % (Auto) 6.6 (0.0-15.0) % Eos % (Auto) 2.4 (0.0-7.0) % Baso % (Auto) 0.4 (0.0-1.5) % Neut # (Auto) 7.8 H (1.4-5.7) K/uL Lymph # (Auto) 2.2 (0.6-2.4) K/uL [place] # (Auto) 0.7 (0.0-0.8) K/uL Eos # (Auto) 0.3 (0.0-0.7) K/uL Baso # (Auto) 0.0 (0.0-0.1) K/uL Nucleated RBC % 0.0 /100WBC Nucleated RBCs # 0 K/uL INR Sodium (136-145) mmol/L Potassium (3.5-5.1) mmol/L Chloride (98-107) mmol/L Carbon Dioxide (21.0-32.0) mmol/L BUN (7.0-18.0) mg/dL Creatinine (0.6-1.0) mg/dL Est Cr Clr Drug Dosing mL/min Estimated GFR (MDRD) ml/min Glucose (74-106) mg/dL Calcium (8.5-10.1) mg/dL Total Bilirubin (0.2-1.0) mg/dL AST (15-37) IU/L ALT (14-63) IU/L Alkaline Phosphatase (46-116) U/L Total Protein (6.4-8.2) g/dL Albumin (3.4-5.0) g/dL Globulin (2.0-3.5) g/dL Albumin/Globulin Ratio (1.3-2.8) Urine Color YELLOW Urine Appearance CLEAR Urine pH 7.0 (5.0-8.0) Ur Specific [place] <= 1.005 (1.001-1.035) Urine Protein NEGATIVE (NEGATIVE) mg/dL Urine Glucose (UA) NEGATIVE (NEGATIVE) mg/dL Urine Ketones NEGATIVE (NEGATIVE) mg/dL Urine Occult Blood SMALL H (NEGATIVE) Urine Nitrite NEGATIVE (NEGATIVE) Urine Bilirubin NEGATIVE (NEGATIVE) Urine Urobilinogen 0.2 (<2.0) EU/dL Ur Leukocyte Esterase NEGATIVE (NEGATIVE) Urine RBC 0-1 (0-2/HPF) Urine WBC 0-1 (0-5/HPF) Ur Epithelial Cells FEW (NONE-FEW) Urine Bacteria FEW (NEGATIVE) Urine HCG, Qual NEGATIVE (NEGATIVE) 12/08/17 12/08/17 Range/Units 13:15 13:15 WBC (4.0-11.0) K/uL RBC (4.30-5.90) M/uL Hgb (12.0-16.0) g/dL Hct (36.0-46.0) % MCV (80.0-98.0) fL MCH (27.0-32.0) pg MCHC (31.0-37.0) g/dL RDW Std Deviation (28.0-62.0) fl RDW Coeff of Katty (11.0-15.0) % Plt Count (150-400) K/uL MPV (7.40-12.00) fL Neut % (Auto) (48.0-80.0) % Lymph % (Auto) (16.0-40.0) % [place] % (Auto) (0.0-15.0) % Eos % (Auto) (0.0-7.0) % Baso % (Auto) (0.0-1.5) % Neut # (Auto) (1.4-5.7) K/uL Lymph # (Auto) (0.6-2.4) K/uL [place] # (Auto) (0.0-0.8) K/uL Eos # (Auto) (0.0-0.7) K/uL Baso # (Auto) (0.0-0.1) K/uL Nucleated RBC % /100WBC Nucleated RBCs # K/uL INR 1.04 Sodium 143 (136-145) mmol/L Potassium 3.8 (3.5-5.1) mmol/L Chloride 107 (98-107) mmol/L Carbon Dioxide 26.7 (21.0-32.0) mmol/L BUN 13 (7.0-18.0) mg/dL Creatinine 0.8 (0.6-1.0) mg/dL Est Cr Clr Drug Dosing 89.99 mL/min Estimated GFR (MDRD) > 60.0 ml/min Glucose 89 (74-106) mg/dL Calcium 9.4 (8.5-10.1) mg/dL Total Bilirubin 0.4 (0.2-1.0) mg/dL AST 14 L (15-37) IU/L ALT 19 (14-63) IU/L Alkaline Phosphatase 63 (46-116) U/L Total Protein 6.5 (6.4-8.2) g/dL Albumin 3.2 L (3.4-5.0) g/dL Globulin 3.3 (2.0-3.5) g/dL Albumin/Globulin Ratio 1.0 L (1.3-2.8) Urine Color Urine Appearance Urine pH (5.0-8.0) Ur Specific [place] (1.001-1.035) Urine Protein (NEGATIVE) mg/dL Urine Glucose (UA) (NEGATIVE) mg/dL Urine Ketones (NEGATIVE) mg/dL Urine Occult Blood (NEGATIVE) Urine Nitrite (NEGATIVE) Urine Bilirubin (NEGATIVE) Urine Urobilinogen (<2.0) EU/dL Ur Leukocyte Esterase (NEGATIVE) Urine RBC (0-2/HPF) Urine WBC (0-5/HPF) Ur Epithelial Cells (NONE-FEW) Urine Bacteria (NEGATIVE) Urine HCG, Qual (NEGATIVE) Departure - Departure Time of Disposition: 14:21 Disposition: Home, Self-Care 01 Condition: Good Clinical Impression: Back pain, Contusion, Muscle spasm - Discharge Information Referrals: PCP,None [Primary Care Provider] - Forms: ED Department Discharge Additional Instructions: The following information is given to patients seen in the emergency department who are being discharged to home. This information is to outline your options for follow-up care. We provide all patients seen in our emergency department with a follow-up referral. The need for follow-up, as well as the timing and circumstances, are variable depending upon the specifics of your emergency department visit. If you don't have a primary care physician on staff, we will provide you with a referral. We always advise you to contact your personal physician following an emergency department visit to inform them of the circumstance of the visit and for follow-up with them and/or the need for any referrals to a consulting specialist. The emergency department will also refer you to a specialist when appropriate. This referral assures that you have the opportunity for follow-up care with a specialist. All of these measure are taken in an effort to provide you with optimal care, which includes your follow-up. Under all circumstances we always encourage you to contact your private physician who remains a resource for coordinating your care. When calling for follow-up care, please make the office aware that this follow-up is from your recent emergency room visit. If for any reason you are refused follow-up, please contact the [facility] emergency department at and asked to speak to the emergency department charge nurse.
--- NOTE | 2017-12-08 12:11 | CR ---
EXAMINATION: Portable chest radiograph. HISTORY: Shortness of breath. FINDINGS: The trachea is midline. The cardiomediastinal silhouette is within normal limits. No pulmonary infilt rates, effusions or pneumothorax. Osseous structures appear unremarkable. IMPRESSION: No acute cardiopulmonary process.
--- NOTE | 2017-12-08 12:25 | CT ---
EXAMINATION: CT cervical and thoracic spine HISTORY: Pain COMPARISON: None TECHNIQUE: Axial CT images obtained through the cervical and thoracic spine without contrast. Coronal and sagittal reconstructions obtained. FINDINGS: Cervical spine: The cervical spinal alignment is normal. Vertebral body heights and disc spaces appea r well-maintained. There is no fracture or acute osseous or metallic. Bone mineralization is normal. Paravertebral soft tissues are normal. Nonpathologically enlarged cervical chain lymph nodes are pres ent. Lung apices are clear. Thoracic spine: The thoracic spinal alignment is normal. The vertebral body heights and disc spaces a ppear well-maintained. There is no fracture or acute osseous abnormality. Bone mineralization and dis c spaces are preserved. Likely small osteophyte disc complexes noted at T3-T4, T6-T7 and T7-T8. The v isualized lungs are clear. IMPRESSION: 1. No acute osseous abnormality identified. 2. Mild degenerative changes noted within the thoracic spine.
[2017-12-08 14:07] LABS: CHLORIDE,CL 107 mmol/L (98-107); SODIUM,NA 143 mmol/L (136-145)
[2017-12-08 16:04] VITALS: BP 127/69
== END 2017-12-08 14:27 | disposition home or self-care (01) ==
LOC: MW.ED 10:57
DX: S20.229A Contusion of unspecified back wall of thorax, initial encounter (principal); M62.830 Muscle spasm of back; M54.2 Cervicalgia; Z88.6 Allergy status to analgesic agent; Z88.8 Allergy status to other drugs, medicaments and biological substances; Z79.899 Other long term (current) drug therapy; E66.9 Obesity, unspecified; W18.09XA Striking against other object with subsequent fall, initial encounter; Y99.0 Civilian activity done for income or pay
CPT/HCPCS: 36415; 71045; 71045-26; 72125; 72125-26; 72128; 72128-26; 80053; 81001; 81025; 85025; 85610; 99284-25

== ENCOUNTER 2018-05-18 14:39 | Emergency (ER) | payer OTHER ==
--- NOTE | 2018-05-18 15:09 | EDM.PDOC ---
ED HPI GENERAL MEDICAL PROBLEM - General Chief Complaint: Back Pain or Injury Stated Complaint: BACK PAIN FROM FALL Time Seen by Provider: 05/18/18 15:09 Source of Information: Reports: Patient History Limitations: Reports: No Limitations - History of Present Illness INITIAL COMMENTS - FREE TEXT/NARRATIVE: HISTORY AND PHYSICAL: History of present illness: Patient is a 42-year-old female brought in my EMS with complaint of left hip and back pain after fall. She states she was going to get into her slat pickler, had her right leg up on the running board when her left leg slipped out from under her. She fell backwards hitting her head. She denies LOC. She denies headache, neck pain, visual changes, dizziness. She states she tried getting up but felt a pull on the right side of her lower back and was unable to. Review of systems: As per history of present illness and below otherwise all systems reviewed and negative. Past medical history: As per history of present illness and as reviewed below otherwise noncontributory. Surgical history: As per history of present illness and as reviewed below otherwise noncontributory. Social history: No reported history of drug or alcohol abuse. Family history: As per history of present illness and as reviewed below otherwise noncontributory. Physical exam: General: Patient sitting comfortably in no acute distress and nontoxic appearing HEENT: Atraumatic, normocephalic, pupils reactive, negative for conjunctival pallor or scleral icterus, mucous membranes moist, throat clear, neck supple, nontender, trachea midline. No meningeal signs. Lungs: Clear to auscultation, breath sounds equal bilaterally, chest nontender. Heart: S1S2, regular, negative for clicks, rubs, or overt murmur. Abdomen: Soft, nondistended, nontender. Negative for masses or hepatosplenomegaly. Negative for costovertebral tenderness. Pelvis: Stable nontender. Genitourinary: Deferred. Rectal: Deferred. Spine: Pain to palpation of lumbar spine and right lumbar paraspinals. Extremities: Tenderness to palpation of left lateral hip.Atraumatic, negative for cords or calf pain. Neurovascular unremarkable. Neuro: Awake, alert, oriented. Cranial nerves II through XII unremarkable. Cerebellum unremarkable. Motor and sensory unremarkable throughout. Exam nonfocal. Notes: Patient was able to ambulate in the ED without difficulty. Diagnostics: x-ray left hip with pelvis, x-ray lumbar spine Therapeutics: Toradol 60mg IM Prescriptions: Declined Impression: Fall, acute lumbar back pain, left hip pain Plan: 1. Ice and motrin as needed 2. Follow up with primary care provider 3. Return to ED as needed as discussed Definitive disposition and diagnosis as appropriate pending reevaluation and review of above. left hip Pain Score (Numeric/FACES): 6 - Related Data Allergies Allergy/AdvReac Type Severity Reaction Status Date / Time acetaminophen [From Tylenol] Allergy Unknown Headache Verified 12/08/17 11:10 aspirin Allergy Unknown Swelling Verified 12/08/17 11:10 piroxicam [From Feldene] Allergy Unknown Swelling Verified 12/08/17 11:10 valacyclovir HCl Allergy Unknown Hallucinati Verified 12/08/17 11:10 [From Valtrex] ons surgical tape Allergy Mild Blisters Uncoded 12/08/17 11:10 Home Meds: Home Meds Omeprazole [Prilosec] 20 mg PO DAILY 07/02/13 [History] Pregabalin [Lyrica] 100 mg PO BID 06/13/17 [History] Ergocalciferol (Vitamin D2) [Vitamin D2] 800 unit PO DAILY 10/30/17 [History] Turmeric Root Extract [Turmeric] 500 mg PO DAILY 10/30/17 [History] Vitamin B Complex Vit C No.4 [Super B Complex] 150 mg PO DAILY 10/30/17 [History ] Past Medical History - Past Health History Medical/Surgical History: Denies Medical/Surgical History HEENT History: Reports: Other (See Below) Other HEENT History: wears glasses/contacts Cardiovascular History: Reports: None Respiratory History: Reports: Sleep Apnea Other Respiratory History: Pt on CPAP at home Gastrointestinal History: Reports: GERD Genitourinary History: Reports: None MANAGER GAS History: Reports: None Musculoskeletal History: Reports: Back Pain, Chronic Other Musculoskeletal History: states has herniated discs to back Neurological History: Reports: Migraines Psychiatric History: Reports: None Endocrine/Metabolic History: Reports: Obesity/BMI 30+ Hematologic History: Reports: None Immunologic History: Reports: None Oncologic (Cancer) History: Reports: None Dermatologic History: Reports: None - Infectious Disease History Infectious Disease History: Reports: Measles - Past Surgical History Head Surgeries/Procedures: Reports: None GI Surgical History: Reports: Cholecystectomy Female Surgical History: Reports: Hysterectomy Other Female Surgeries/Procedures: states "partial hysterectomy" Social & Family History - Family History Family Medical History: Noncontributory Cardiac: Reports: Heart Failure, [place] Neurological: Reports: CVA - Tobacco Use Smoking Status *Q: Current Every Day Smoker Years of Tobacco use: 35 Packs/Tins Daily: 1 - Caffeine Use Caffeine Use: Reports: Coffee Caffeine Use Comment: 2drinks/day - Recreational Drug Use Recreational Drug Use: No - Living Situation & Occupation Living situation: Reports: Occupation: Employed ED ROS GENERAL - Review of Systems Review Of Systems: ROS reveals no pertinent complaints other than HPI. ED EXAM,LOWER BACK PAIN/INJURY - Physical Exam Exam: See Below (see dictation) Course - Vital Signs Last Recorded V/S: Last Vital Signs Temp 97.5 F 05/18/18 14:46 Pulse 48 L 05/18/18 17:01 Resp 18 05/18/18 17:01 BP 114/66 05/18/18 17:01 Pulse Ox 98 05/18/18 17:01 - Orders/Labs/Meds Meds: Medications Discontinued Medications Generic Name Dose Route Start Last Admin Trade Name Dhavalq PRN Reason Stop Dose Admin Ketorolac Tromethamine 60 mg 05/18/18 16:35 05/18/18 16:58 Toradol IM 05/18/18 16:36 60 mg ONETIME ONE Administration Morphine Sulfate 2 mg 05/18/18 15:36 05/18/18 17:00 Morphine IVPUSH 05/18/18 15:37 Not Given ONETIME ONE Departure - Departure Time of Disposition: 17:22 Disposition: Home, Self-Care 01 Condition: Good Clinical Impression: Fall, Acute lumbar back pain, Left hip pain - Discharge Information Instructions: Hip Pain, Musculoskeletal Pain, Back Pain, Adult, [id number] Referrals: PCP,Unknown [Primary Care Provider] - Forms: ED Department Discharge Additional Instructions: The following information is given to patients seen in the emergency department who are being discharged to home. This information is to outline your options for follow-up care. We provide all patients seen in our emergency department with a follow-up referral. The need for follow-up, as well as the timing and circumstances, are variable depending upon the specifics of your emergency department visit. If you don't have a primary care physician on staff, we will provide you with a referral. We always advise you to contact your personal physician following an emergency department visit to inform them of the circumstance of the visit and for follow-up with them and/or the need for any referrals to a consulting specialist. The emergency department will also refer you to a specialist when appropriate. This referral assures that you have the opportunity for follow-up care with a specialist. All of these measure are taken in an effort to provide you with optimal care, which includes your follow-up. Under all circumstances we always encourage you to contact your private physician who remains a resource for coordinating your care. When calling for follow-up care, please make the office aware that this follow-up is from your recent emergency room visit. If for any reason you are refused follow-up, please contact the [facility] Emergency Department at and asked to speak to the emergency department charge nurse. [facility] [address] [place] [id number] [place] [address] 1. Ice and motrin as needed 2. Follow up with primary care provider 3. Return to ED as needed as discussed
[2018-05-18] MEDS ORDERED: Morphine 2 MG/ML Syringe IVPUSH ONE (15:36)
[2018-05-18] MEDS ORDERED: Ketorolac 60 MG/2 ML SDV IM ONE (16:35)
--- NOTE | 2018-05-18 17:07 | CR ---
INDICATION: Fall TECHNIQUE: Lumbar spine 3 view. COMPARISON: None FINDINGS: Bones: Alignment is normal. No fractures or significant bone lesions. Joints: Mild multilevel degenerative changes with disc space narrowing L4-5 and L5-S1.. Soft tissues: Unremarkable. IMPRESSION: No evidence of acute trauma. Dictated by Reinier Álvarez MD @ 05/18/2018 5:06:12 PM Dictated by: Reinier Álvarez MD @ 05/18/2018 17:06:19 (Electronically Signed)
--- NOTE | 2018-05-18 17:14 | CR ---
INDICATION: Fall TECHNIQUE: AP pelvis and two views left hip COMPARISON: None FINDINGS: Bones: Alignment is normal. No fractures or bone lesions. Joint spaces: Unremarkable. Soft tissues: Unremarkable. IMPRESSION: Negative. Dictated by Reinier Álvarez MD @ 05/18/2018 5:12:33 PM Dictated by: Reinier Álvarez MD @ 05/18/2018 17:12:40 (Electronically Signed)
[2018-05-18 18:03] VITALS: BP 116/66
== END 2018-05-18 18:00 | disposition home or self-care (01) ==
LOC: MW.ED 14:39
DX: M54.5 Low back pain (principal); M25.552 Pain in left hip; F17.210 Nicotine dependence, cigarettes, uncomplicated; K21.9 Gastro-esophageal reflux disease without esophagitis; Z79.899 Other long term (current) drug therapy; Z88.6 Allergy status to analgesic agent; Z91.09 Other allergy status, other than to drugs and biological substances
CPT/HCPCS: 72100; 73502; 96372; 99283; J1885

== ENCOUNTER 2018-07-12 15:12 | Emergency (ER) | payer OTHER ==
--- NOTE | 2018-07-12 15:27 | EDM.PDOC ---
ED HPI GENERAL MEDICAL PROBLEM - General Chief Complaint: Abdominal Pain Stated Complaint: SENT FOR DR LOCO Time Seen by Provider: 07/12/18 15:19 Source of Information: Reports: Patient History Limitations: Reports: No Limitations - History of Present Illness INITIAL COMMENTS - FREE TEXT/NARRATIVE: HISTORY AND PHYSICAL: History of present illness: Patient is a 43-year-old female who presents to the emergency room today with complaints of right lower quadrant abdominal/pelvic pain since Wednesday. Patient states she went to the clinic today to see Dr. Loco. She was being evaluated for ovarian cysts. Patient had a pelvic ultrasound and pelvic examination completed. Was informed that there were no ovarian cysts and she should be seen in the emergency room for further evaluation and management. Erich reports he has no OBGYN concerns at this time. Patient denies any fever, chills, headache, change in vision, syncope or near syncope. Denies any chest pain, back pain, shortness of breath or cough. Denies any vomiting, diarrhea, constipation or dysuria. Patient denies any concerns of STDs. She has not had any vaginal bleeding, discharge or lesions. Has not noted any blood in urine or stool. Patient has been eating and drinking appropriately. Review of systems: As per history of present illness and below otherwise all systems reviewed and negative. Past medical history: As per history of present illness and as reviewed below otherwise noncontributory. Surgical history: As per history of present illness and as reviewed below otherwise noncontributory. Social history: See social history for further information Family history: As per history of present illness and as reviewed below otherwise noncontributory. Physical exam: General: Well-developed and well-nourished 43-year-old female. Alert and oriented. Nontoxic appearing and in no acute distress. HEENT: Atraumatic, normocephalic, pupils equal and reactive bilaterally, negative for conjunctival pallor or scleral icterus, mucous membranes moist, TMs normal bilaterally, throat clear, neck supple, nontender, trachea midline. No drooling or trismus noted. No meningeal signs. No hot potato voice noted. Lungs: Clear to auscultation, breath sounds equal bilaterally, chest nontender. Heart: S1S2, regular rate and rhythm without overt murmur Abdomen: Soft, obese, nondistended, mild right lower quadrant tenderness, no rebound tenderness noted Negative for masses or hepatosplenomegaly. Negative for costovertebral tenderness. Pelvis: Stable nontender. Genitourinary: Deferred. Rectal: Deferred. Skin: Intact, warm, dry. No lesions or rashes noted. Extremities: Atraumatic, moves all extremities per self without difficulty or deficits, negative for cords or calf pain. Neurovascular unremarkable. Neuro: Awake, alert, oriented. Cranial nerves II through XII unremarkable. Cerebellum unremarkable. Motor and sensory unremarkable throughout. Exam nonfocal. Notes: Patient denies any chance of as she is in a same-sex relationship. She is agreeable to lab work and CT imagining at this time. Lab work is unremarkable. CT of the abdomen and pelvis shows no acute intra- abdominal processes identified. As patient did have a pelvic ultrasound in the clinic earlier today and will treat her with supportive care measures at home. Encouraged her to follow-up with her MEDICAL INSURANCE CLAIMS PROCESSOR, Dr. Loco. She voices understanding and is agreeable to plan of care. Denies any further questions or concerns at this time. Diagnostics: CBC, CMP, UA, CT abdomen and pelvis Therapeutics: IV fluid, Zofran, morphine Prescription: Tramadol (#15) Impression: Abdominal Pain, right lower, unspecified Plan: 1. Mineral diet and advance as tolerated. Make sure you're drinking plenty of fluids to prevent dehydration. 2. Take the tramadol as needed for moderate to severe pain. Otherwise routine ibuprofen with food. 3. Follow-up with Dr. Loco as we discussed. Return to the ED as needed and as discussed. Definitive disposition and diagnosis as appropriate pending reevaluation and review of above. RLQ Pain Score (Numeric/FACES): 10 - Related Data Allergies Allergy/AdvReac Type Severity Reaction Status Date / Time acetaminophen [From Tylenol] Allergy Unknown Headache Verified 07/12/18 15:20 aspirin Allergy Unknown Swelling Verified 07/12/18 15:20 piroxicam [From Feldene] Allergy Unknown Swelling Verified 07/12/18 15:20 valacyclovir HCl Allergy Unknown Hallucinati Verified 07/12/18 15:20 [From Valtrex] ons surgical tape Allergy Mild Blisters Uncoded 12/08/17 11:10 Home Meds: Home Meds Omeprazole [Prilosec] 20 mg PO DAILY 07/02/13 [History] Pregabalin [Lyrica] 100 mg PO BID 06/13/17 [History] Ergocalciferol (Vitamin D2) [Vitamin D2] 800 unit PO DAILY 10/30/17 [History] Turmeric Root Extract [Turmeric] 500 mg PO DAILY 10/30/17 [History] Vitamin B Complex Vit C No.4 [Super B Complex] 150 mg PO DAILY 10/30/17 [History ] Past Medical History - Past Health History Medical/Surgical History: Denies Medical/Surgical History HEENT History: Reports: Other (See Below) Other HEENT History: wears glasses/contacts Cardiovascular History: Reports: None Respiratory History: Reports: Sleep Apnea Other Respiratory History: Pt on CPAP at home Gastrointestinal History: Reports: GERD Genitourinary History: Reports: None MEDICAL INSURANCE CLAIMS PROCESSOR History: Reports: None Musculoskeletal History: Reports: Back Pain, Chronic Other Musculoskeletal History: states has herniated discs to back Neurological History: Reports: Migraines Psychiatric History: Reports: None Endocrine/Metabolic History: Reports: Obesity/BMI 30+ Hematologic History: Reports: None Immunologic History: Reports: None Oncologic (Cancer) History: Reports: None Dermatologic History: Reports: None - Infectious Disease History Infectious Disease History: Reports: Measles - Past Surgical History Head Surgeries/Procedures: Reports: None GI Surgical History: Reports: Cholecystectomy Female Surgical History: Reports: Hysterectomy Other Female Surgeries/Procedures: states "partial hysterectomy" Social & Family History - Family History Family Medical History: Noncontributory Cardiac: Reports: Heart Failure, [place] Neurological: Reports: CVA - Caffeine Use Caffeine Use: Reports: Coffee Caffeine Use Comment: 2drinks/day - Living Situation & Occupation Living situation: Reports: Occupation: Employed ED ROS GENERAL - Review of Systems Review Of Systems: ROS reveals no pertinent complaints other than HPI. ED EXAM, GI/ABD - Physical Exam Exam: See Below (See dictation) Course - Vital Signs Last Recorded V/S: Last Vital Signs Temp 97.2 F 07/12/18 15:22 Pulse 63 07/12/18 15:22 Resp 18 07/12/18 15:22 BP 140/80 07/12/18 15:22 Pulse Ox 97 07/12/18 15:22 - Orders/Labs/Meds Labs: Laboratory Tests 07/12/18 07/12/18 07/12/18 Range/Units 15:33 15:33 16:20 WBC 8.43 (4.0-11.0) K/uL RBC 5.10 (4.30-5.90) M/uL Hgb 15.7 (12.0-16.0) g/dL Hct 45.4 (36.0-46.0) % MCV 89.0 (80.0-98.0) fL MCH 30.8 (27.0-32.0) pg MCHC 34.6 (31.0-37.0) g/dL RDW Std Deviation 45.2 (28.0-62.0) fl RDW Coeff of Katty 14 (11.0-15.0) % Plt Count 246 (150-400) K/uL MPV 10.20 (7.40-12.00) fL Neut % (Auto) 51.9 (48.0-80.0) % Lymph % (Auto) 36.2 (16.0-40.0) % Lares % (Auto) 6.6 (0.0-15.0) % Eos % (Auto) 4.7 (0.0-7.0) % Baso % (Auto) 0.6 (0.0-1.5) % Neut # (Auto) 4.4 (1.4-5.7) K/uL Lymph # (Auto) 3.1 H (0.6-2.4) K/uL Lares # (Auto) 0.6 (0.0-0.8) K/uL Eos # (Auto) 0.4 (0.0-0.7) K/uL Baso # (Auto) 0.1 (0.0-0.1) K/uL Nucleated RBC % 0.0 /100WBC Nucleated RBCs # 0 K/uL Sodium 141 (136-145) mmol/L Potassium 4.0 (3.5-5.1) mmol/L Chloride 106 (98-107) mmol/L Carbon Dioxide 23.1 (21.0-32.0) mmol/L BUN 15 (7.0-18.0) mg/dL Creatinine 0.7 (0.6-1.0) mg/dL Est Cr Clr Drug Dosing 101.81 mL/min Estimated GFR (MDRD) > 60.0 ml/min Glucose 95 (74-106) mg/dL Calcium 9.1 (8.5-10.1) mg/dL Total Bilirubin 0.4 (0.2-1.0) mg/dL AST 16 (15-37) IU/L ALT 22 (14-63) IU/L Alkaline Phosphatase 55 (46-116) U/L Total Protein 7.4 (6.4-8.2) g/dL Albumin 3.7 (3.4-5.0) g/dL Globulin 3.7 (2.6-4.0) g/dL Albumin/Globulin Ratio 1.0 (0.9-1.6) Urine Color YELLOW Urine Appearance CLEAR Urine pH 5.5 (5.0-8.0) Ur Specific [place] <= 1.005 (1.001-1.035) Urine Protein NEGATIVE (NEGATIVE) mg/dL Urine Glucose (UA) NEGATIVE (NEGATIVE) mg/dL Urine Ketones NEGATIVE (NEGATIVE) mg/dL Urine Occult Blood NEGATIVE (NEGATIVE) Urine Nitrite NEGATIVE (NEGATIVE) Urine Bilirubin NEGATIVE (NEGATIVE) Urine Urobilinogen 0.2 (<2.0) EU/dL Ur Leukocyte Esterase NEGATIVE (NEGATIVE) Meds: Medications Discontinued Medications Generic Name Dose Route Start Last Admin Trade Name Freq PRN Reason Stop Dose Admin Sodium Chloride 1,000 mls @ 999 mls/hr 07/12/18 15:28 07/12/18 15:39 Normal Saline IV 07/12/18 16:28 999 mls/hr STAT ONE Administration Iopamidol 100 ml 07/12/18 16:48 Isovue Multipack-370 (76%) IVPUSH 07/12/18 16:49 ONETIME STA Morphine Sulfate 4 mg 07/12/18 15:28 07/12/18 15:39 Morphine IVPUSH 07/12/18 15:29 4 mg ONETIME ONE Administration Ondansetron HCl 4 mg 07/12/18 15:28 07/12/18 15:39 Zofran IVPUSH 07/12/18 15:29 4 mg ONETIME ONE Administration Departure - Departure Time of Disposition: 17:53 Disposition: Home, Self-Care 01 Clinical Impression: Abdominal pain Qualifiers: Abdominal location: right lower quadrant Qualified Code(s): R10.31 - Right lower quadrant pain - Discharge Information Instructions: Abdominal Pain, Adult, [id number] Referrals: PCP,Unknown [Primary Care Provider] - Forms: ED Department Discharge Additional Instructions: The following information is given to patients seen in the emergency department who are being discharged to home. This information is to outline your options for follow-up care. We provide all patients seen in our emergency department with a follow-up referral. The need for follow-up, as well as the timing and circumstances, are variable depending upon the specifics of your emergency department visit. If you don't have a primary care physician on staff, we will provide you with a referral. We always advise you to contact your personal physician following an emergency department visit to inform them of the circumstance of the visit and for follow-up with them and/or the need for any referrals to a consulting specialist. The emergency department will also refer you to a specialist when appropriate. This referral assures that you have the opportunity for follow-up care with a specialist. All of these measure are taken in an effort to provide you with optimal care, which includes your follow-up. Under all circumstances we always encourage you to contact your private physician who remains a resource for coordinating your care. When calling for follow-up care, please make the office aware that this follow-up is from your recent emergency room visit. If for any reason you are refused follow-up, please contact the [facility] Emergency Department at and asked to speak to the emergency department charge nurse. [facility] [address] [place], [place] [id number] [place] [address] 1. Mineral diet and advance as tolerated. Make sure you're drinking plenty of fluids to prevent dehydration. 2. Take the tramadol as needed for moderate to severe pain. Otherwise routine ibuprofen with food. 3. Follow-up with Dr. Loco as we discussed. Return to the ED as needed and as discussed.
[2018-07-12] MEDS ORDERED: Sodium Chloride 0.9% 1,000 ML IV ONE (15:28)
[2018-07-12] MEDS ORDERED: Morphine 4 MG/ML Syringe IVPUSH ONE (15:28)
[2018-07-12] MEDS ORDERED: Ondansetron 4 MG/2 ML SDV IVPUSH ONE (15:28)
[2018-07-12 16:19] LABS: CHLORIDE,CL 106 mmol/L (98-107); SODIUM,NA 141 mmol/L (136-145)
[2018-07-12] MEDS ORDERED: Iopamidol 755 MG/ML 500 ML Multipack Bottle IVPUSH STA (16:48)
--- NOTE | 2018-07-12 17:48 | CT ---
INDICATION: Right lower quadrant pain for 4 days TECHNIQUE: CT abdomen and pelvis acquired with 100 cc Isovue 370 IV contrast. COMPARISON: July 02, 2017 FINDINGS: Lower chest: Unremarkable. Liver: Unremarkable. Spleen: Unremarkable. Pancreas: Unremarkable. Gallbladder and bile ducts: S/p cholecystectomy. Adrenal glands: Unremarkable. Kidneys: Unremarkable. GI tract: Unremarkable. Appendix is normal. Vascular structures: Unremarkable. Lymph nodes: Unremarkable. Miscellaneous: Unremarkable. No free air or significant free fluid. Pelvic Organs: Status post hysterectomy. Bones: Unremarkable for age. IMPRESSION: Normal appendix. No acute intra-abdominal process identified. Status post cholecystectomy and hysterectomy. Please note that all CT scans at this facility use dose modulation, iterative reconstruction, and/or weight-based dosing when appropriate to reduce radiation dose to as low as reasonably achievable. Dictated by Aida Nash MD @ Jul 12 2018 5:40PM Signed by Dr. Aida Nash @ Jul 12 2018 5:46PM
[2018-07-12 18:59] VITALS: BP 116/70
== END 2018-07-12 18:15 | disposition home or self-care (01) ==
LOC: MW.ED 15:12
DX: R10.31 Right lower quadrant pain (principal); K21.9 Gastro-esophageal reflux disease without esophagitis; Z88.6 Allergy status to analgesic agent; Z91.09 Other allergy status, other than to drugs and biological substances; Z79.899 Other long term (current) drug therapy
CPT/HCPCS: 36415; 74177; 80053; 81003; 85025; 96361; 96374; 96375; 99284; J2270; J2405; J7040

== ENCOUNTER 2018-07-13 08:55 | Emergency (ER) | payer OTHER ==
[2018-07-13] MEDS ORDERED: Ondansetron 4 MG/2 ML SDV IVPUSH ONE (09:04)
[2018-07-13] MEDS ORDERED: Sodium Chloride 0.9% 1,000 ML IV ONE (09:04)
[2018-07-13] MEDS ORDERED: Ketorolac 30 MG/ML SDV IVPUSH ONE (09:04)
--- NOTE | 2018-07-13 09:05 | EDM.PDOC ---
ED HPI GENERAL MEDICAL PROBLEM - General Chief Complaint: Headache Stated Complaint: MIGRAINE Time Seen by Provider: 07/13/18 09:05 Source of Information: Reports: Patient - History of Present Illness INITIAL COMMENTS - FREE TEXT/NARRATIVE: HISTORY AND PHYSICAL: History of present illness: [Patient presents with headache right unilateral with light sensitivity and noise sensitivity mild nausea no vomiting no fever chills sweats, symptoms consistent with usual migraine Night his injury or trauma and resolved with treatment and below ] Review of systems: As per history of present illness and below otherwise all systems reviewed and negative. Past medical history: As per history of present illness and as reviewed below otherwise noncontributory. Surgical history: As per history of present illness and as reviewed below otherwise noncontributory. Social history: No reported history of drug or alcohol abuse. Family history: As per history of present illness and as reviewed below otherwise noncontributory. Physical exam: HEENT: Atraumatic, normocephalic, pupils reactive, negative for conjunctival pallor or scleral icterus, mucous membranes moist, throat clear, neck supple, nontender, trachea midline. Lungs: Clear to auscultation, breath sounds equal bilaterally, chest nontender. Heart: S1S2, regular, negative for clicks, rubs, or JVD. Abdomen: Soft, nondistended, nontender. Negative for masses or hepatosplenomegaly. Negative for costovertebral tenderness. Pelvis: Stable nontender. Genitourinary: Deferred. Rectal: Deferred. Extremities: Atraumatic, negative for cords or calf pain. Neurovascular unremarkable. Neuro: Awake, alert, oriented. Cranial nerves II through XII unremarkable. Cerebellum unremarkable. Motor and sensory unremarkable throughout. Exam nonfocal. Diagnostics: [ EDC CMP UA on file from yesterday ] Therapeutics: [Normal saline Zofran Toradol ] Benadryl Ativan Impression: [Headache]-resolved Definitive disposition and diagnosis as appropriate pending reevaluation and review of above. Headache Pain Score (Numeric/FACES): 10 - Related Data Allergies Allergy/AdvReac Type Severity Reaction Status Date / Time acetaminophen [From Tylenol] Allergy Unknown Headache Verified 07/12/18 15:20 aspirin Allergy Unknown Swelling Verified 07/12/18 15:20 piroxicam [From Feldene] Allergy Unknown Swelling Verified 07/12/18 15:20 valacyclovir HCl Allergy Unknown Hallucinati Verified 07/12/18 15:20 [From Valtrex] ons surgical tape Allergy Mild Blisters Uncoded 12/08/17 11:10 Home Meds: Home Meds Omeprazole [Prilosec] 20 mg PO DAILY 07/02/13 [History] Pregabalin [Lyrica] 100 mg PO BID 06/13/17 [History] Ergocalciferol (Vitamin D2) [Vitamin D2] 800 unit PO DAILY 10/30/17 [History] Turmeric Root Extract [Turmeric] 500 mg PO DAILY 10/30/17 [History] Vitamin B Complex Vit C No.4 [Super B Complex] 150 mg PO DAILY 10/30/17 [History ] Past Medical History - Past Health History Medical/Surgical History: Denies Medical/Surgical History HEENT History: Reports: Other (See Below) Other HEENT History: wears glasses/contacts Cardiovascular History: Reports: None Respiratory History: Reports: Sleep Apnea Other Respiratory History: Pt on CPAP at home Gastrointestinal History: Reports: GERD Genitourinary History: Reports: None 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 Musculoskeletal History: Reports: Back Pain, Chronic Other Musculoskeletal History: states has herniated discs to back Neurological History: Reports: Migraines Psychiatric History: Reports: None Endocrine/Metabolic History: Reports: Obesity/BMI 30+ Hematologic History: Reports: None Immunologic History: Reports: None Oncologic (Cancer) History: Reports: None Dermatologic History: Reports: None - Infectious Disease History Infectious Disease History: Reports: Measles - Past Surgical History Head Surgeries/Procedures: Reports: None GI Surgical History: Reports: Cholecystectomy Female Surgical History: Reports: Hysterectomy Other Female Surgeries/Procedures: states "partial hysterectomy" Social & Family History - Family History Family Medical History: Noncontributory Cardiac: Reports: Heart Failure, CT Neurological: Reports: CVA - Caffeine Use Caffeine Use: Reports: Coffee Caffeine Use Comment: 2drinks/day - Living Situation & Occupation Living situation: Reports: Occupation: Employed ED ROS GENERAL - Review of Systems Review Of Systems: See Below ED EXAM, GENERAL - Physical Exam Exam: See Below Course - Vital Signs Last Recorded V/S: Last Vital Signs Temp 98.1 F 07/13/18 09:18 Pulse 58 L 07/13/18 09:18 Resp 14 07/13/18 09:18 BP 104/57 L 07/13/18 09:18 Pulse Ox 95 07/13/18 09:18 - Orders/Labs/Meds Meds: Medications Discontinued Medications Generic Name Dose Route Start Last Admin Trade Name Mynor PRBlaise Reason Stop Dose Admin Diphenhydramine HCl 50 mg 07/13/18 10:06 07/13/18 10:41 Benadryl IVPUSH 07/13/18 10:07 50 mg ONETIME ONE Administration Sodium Chloride 1,000 mls @ 999 mls/hr 07/13/18 09:04 07/13/18 10:00 Normal Saline IV 07/13/18 10:04 999 mls/hr STAT ONE Administration Ketorolac Tromethamine 30 mg 07/13/18 09:04 07/13/18 10:00 Toradol IVPUSH 07/13/18 09:05 30 mg ONETIME ONE Administration Lorazepam 1 mg 07/13/18 10:06 07/13/18 10:41 Ativan IVPUSH 07/13/18 10:07 1 mg ONETIME ONE Administration Ondansetron HCl 8 mg 07/13/18 09:04 07/13/18 10:00 Zofran IVPUSH 07/13/18 09:05 8 mg ONETIME ONE Administration Departure - Departure Time of Disposition: 11:00 Disposition: Home, Self-Care 01 Condition: Good Clinical Impression: Headache - Discharge Information Referrals: PCP,None [Primary Care Provider] - Forms: ED Department Discharge Additional Instructions: The following information is given to patients seen in the emergency department who are being discharged to home. This information is to outline your options for follow-up care. We provide all patients seen in our emergency department with a follow-up referral. The need for follow-up, as well as the timing and circumstances, are variable depending upon the specifics of your emergency department visit. If you don't have a primary care physician on staff, we will provide you with a referral. We always advise you to contact your personal physician following an emergency department visit to inform them of the circumstance of the visit and for follow-up with them and/or the need for any referrals to a consulting specialist. The emergency department will also refer you to a specialist when appropriate. This referral assures that you have the opportunity for follow-up care with a specialist. All of these measure are taken in an effort to provide you with optimal care, which includes your follow-up. Under all circumstances we always encourage you to contact your private physician who remains a resource for coordinating your care. When calling for follow-up care, please make the office aware that this follow-up is from your recent emergency room visit. If for any reason you are refused follow-up, please contact the [facility] emergency department at and asked to speak to the emergency department charge nurse.
[2018-07-13] MEDS ORDERED: LORazepam 2 MG/ML SDV IVPUSH ONE (10:06)
[2018-07-13] MEDS ORDERED: diphenhydrAMINE 50 MG/ML SDV IVPUSH ONE (10:06)
[2018-07-13 11:00] VITALS: BP 110/62
== END 2018-07-13 11:05 | disposition home or self-care (01) ==
LOC: MW.ED 08:55
DX: R51 Headache (principal); E66.9 Obesity, unspecified; Z68.42 Body mass index [BMI] 45.0-49.9, adult; Z88.8 Allergy status to other drugs, medicaments and biological substances; Z79.899 Other long term (current) drug therapy
CPT/HCPCS: 96361; 96374; 96375; 99283; J1200; J1885; J2060; J2405; J7040

== ENCOUNTER 2018-11-23 02:51 | Emergency (ER) | payer OTHER ==
[2018-11-23] MEDS ORDERED: Ketorolac 30 MG/ML SDV IVPUSH ONE (02:53)
[2018-11-23] MEDS ORDERED: Sodium Chloride 0.9% 1,000 ML IV ONE (02:53)
[2018-11-23] MEDS ORDERED: Ondansetron 4 MG/2 ML SDV IVPUSH ONE (02:55)
--- NOTE | 2018-11-23 02:55 | EDM.PDOC ---
ED HPI GENERAL MEDICAL PROBLEM - General Chief Complaint: Headache Stated Complaint: HEADACHES Time Seen by Provider: 11/23/18 02:54 Source of Information: Reports: Patient - History of Present Illness INITIAL COMMENTS - FREE TEXT/NARRATIVE: HISTORY AND PHYSICAL: History of present illness: []Patient presents with right unilateral headache consistent with usual migraine 5 out of 10 nonradiating no fever vomiting chills sweats Review of systems: As per history of present illness and below otherwise all systems reviewed and negative. Past medical history: As per history of present illness and as reviewed below otherwise noncontributory. Surgical history: As per history of present illness and as reviewed below otherwise noncontributory. Social history: No reported history of drug or alcohol abuse. Family history: As per history of present illness and as reviewed below otherwise noncontributory. Physical exam: HEENT: Atraumatic, normocephalic, pupils reactive, negative for conjunctival pallor or scleral icterus, mucous membranes moist, throat clear, neck supple, nontender, trachea midline. Lungs: Clear to auscultation, breath sounds equal bilaterally, chest nontender. Heart: S1S2, regular, negative for clicks, rubs, or JVD. Abdomen: Soft, nondistended, nontender. Negative for masses or hepatosplenomegaly. Negative for costovertebral tenderness. Pelvis: Stable nontender. Genitourinary: Deferred. Rectal: Deferred. Extremities: Atraumatic, negative for cords or calf pain. Neurovascular unremarkable. Neuro: Awake, alert, oriented. Cranial nerves II through XII unremarkable. Cerebellum unremarkable. Motor and sensory unremarkable throughout. Exam nonfocal. Diagnostics: [None ] Therapeutics: []Normal saline Toradol Impression: [] headache resolved Definitive disposition and diagnosis as appropriate pending reevaluation and review of above. head Pain Score (Numeric/FACES): 10 - Related Data Allergies Allergy/AdvReac Type Severity Reaction Status Date / Time acetaminophen [From Tylenol] Allergy Unknown Headache Verified 11/23/18 02:54 aspirin Allergy Unknown Swelling Verified 11/23/18 02:54 piroxicam [From Feldene] Allergy Unknown Swelling Verified 11/23/18 02:54 valacyclovir HCl Allergy Unknown Hallucinati Verified 11/23/18 02:54 [From Valtrex] ons surgical tape Allergy Mild Blisters Uncoded 11/23/18 02:54 Home Meds: Home Meds Omeprazole [Prilosec] 20 mg PO DAILY 07/02/13 [History] Pregabalin [Lyrica] 100 mg PO BID 06/13/17 [History] Ergocalciferol (Vitamin D2) [Vitamin D2] 800 unit PO DAILY 10/30/17 [History] Turmeric Root Extract [Turmeric] 500 mg PO DAILY 10/30/17 [History] Vitamin B Complex Vit C No.4 [Super B Complex] 150 mg PO DAILY 10/30/17 [History ] Past Medical History - Past Health History Medical/Surgical History: Denies Medical/Surgical History HEENT History: Reports: Other (See Below) Other HEENT History: wears glasses/contacts Cardiovascular History: Reports: None Respiratory History: Reports: Sleep Apnea Other Respiratory History: Pt on CPAP at home Gastrointestinal History: Reports: GERD Genitourinary History: Reports: None 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 Musculoskeletal History: Reports: Back Pain, Chronic Other Musculoskeletal History: states has herniated discs to back Neurological History: Reports: Migraines Psychiatric History: Reports: None Endocrine/Metabolic History: Reports: Obesity/BMI 30+ Hematologic History: Reports: None Immunologic History: Reports: None Oncologic (Cancer) History: Reports: None Dermatologic History: Reports: None - Infectious Disease History Infectious Disease History: Reports: Measles - Past Surgical History Head Surgeries/Procedures: Reports: None GI Surgical History: Reports: Cholecystectomy Female Surgical History: Reports: Hysterectomy Other Female Surgeries/Procedures: states "partial hysterectomy" Social & Family History - Family History Family Medical History: Noncontributory Cardiac: Reports: Heart Failure, [place] Neurological: Reports: CVA - Caffeine Use Caffeine Use: Reports: Coffee Caffeine Use Comment: 2drinks/day - Living Situation & Occupation Living situation: Reports: Occupation: Employed ED ROS GENERAL - Review of Systems Review Of Systems: See Below ED EXAM, GENERAL - Physical Exam Exam: See Below Course - Vital Signs Last Recorded V/S: Last Vital Signs Temp 96.0 F 11/23/18 02:55 Pulse 67 11/23/18 02:55 Resp 18 11/23/18 02:55 BP 134/90 11/23/18 02:55 Pulse Ox 98 11/23/18 02:55 - Orders/Labs/Meds Orders: Active Orders 24 hr Category Date Time Status Sodium Chloride 0.9% [Normal Saline] 1,000 ml Med 11/23/18 02:53 Active IV STAT Medication Orders Sodium Chloride (Normal Saline) 1,000 mls @ 999 mls/hr IV STAT ONE Stop: 11/23/18 03:53 Last Admin: 11/23/18 03:07 Dose: 999 mls/hr Meds: Medications Generic Name Dose Route Start Last Admin Trade Name Freq PRN Reason Stop Dose Admin Sodium Chloride 1,000 mls @ 999 mls/hr 11/23/18 02:53 11/23/18 03:07 Normal Saline IV 11/23/18 03:53 999 mls/hr STAT ONE Administration Discontinued Medications Generic Name Dose Route Start Last Admin Trade Name Freq PRN Reason Stop Dose Admin Ketorolac Tromethamine 30 mg 11/23/18 02:53 11/23/18 03:08 Toradol IVPUSH 11/23/18 02:54 30 mg ONETIME ONE Administration Ondansetron HCl 8 mg 11/23/18 02:55 11/23/18 03:07 Zofran IVPUSH 11/23/18 02:56 8 mg ONETIME ONE Administration Departure - Departure Time of Disposition: 03:45 Disposition: Home, Self-Care 01 Condition: Good Clinical Impression: Headache - Discharge Information Referrals: PCP,None [Primary Care Provider] - Forms: ED Department Discharge Additional Instructions: The following information is given to patients seen in the emergency department who are being discharged to home. This information is to outline your options for follow-up care. We provide all patients seen in our emergency department with a follow-up referral. The need for follow-up, as well as the timing and circumstances, are variable depending upon the specifics of your emergency department visit. If you don't have a primary care physician on staff, we will provide you with a referral. We always advise you to contact your personal physician following an emergency department visit to inform them of the circumstance of the visit and for follow-up with them and/or the need for any referrals to a consulting specialist. The emergency department will also refer you to a specialist when appropriate. This referral assures that you have the opportunity for follow-up care with a specialist. All of these measure are taken in an effort to provide you with optimal care, which includes your follow-up. Under all circumstances we always encourage you to contact your private physician who remains a resource for coordinating your care. When calling for follow-up care, please make the office aware that this follow-up is from your recent emergency room visit. If for any reason you are refused follow-up, please contact the [facility] emergency department at and asked to speak to the emergency department charge nurse. - My Orders Last 24 Hours: My Active Orders 11/23/18 02:53 Sodium Chloride 0.9% [Normal Saline] 1,000 ml IV STAT - Assessment/Plan Last 24 Hours: My Active Orders 11/23/18 02:53 Sodium Chloride 0.9% [Normal Saline] 1,000 ml IV STAT
[2018-11-23 04:17] VITALS: BP 118/55
== END 2018-11-23 03:55 | disposition home or self-care (01) ==
LOC: MW.ED 02:51
DX: R51 Headache (principal); K21.9 Gastro-esophageal reflux disease without esophagitis; Z68.41 Body mass index [BMI] 40.0-44.9, adult; E66.9 Obesity, unspecified; Z88.6 Allergy status to analgesic agent; Z88.8 Allergy status to other drugs, medicaments and biological substances; Z79.899 Other long term (current) drug therapy
CPT/HCPCS: 96361; 96374; 96375; 99283; J1885; J2405; J7040

== ENCOUNTER 2019-04-08 22:27 | Emergency (ER) | payer OTHER ==
[2019-04-08] MEDS ORDERED: HYDROmorphone 2 MG/ML Syringe IVPUSH STA (22:44)
[2019-04-08] MEDS ORDERED: Ondansetron 4 MG/2 ML SDV IVPUSH ONE (22:44)
--- NOTE | 2019-04-08 22:52 | EDM.PDOC ---
ED HPI GENERAL MEDICAL PROBLEM - General Chief Complaint: General Stated Complaint: left sided pain Time Seen by Provider: 04/08/19 22:35 Source of Information: Reports: Patient History Limitations: Reports: No Limitations - History of Present Illness INITIAL COMMENTS - FREE TEXT/NARRATIVE: HISTORY OF PRESENT ILLNESS: Patient is a 43-year-old female who states that approximately 30 minutes prior to arrival she tripped over her dog and a gate while at home landing on her left side. She denies any head injury or loss of consciousness. Denies any neck pain. Denies any back pain. Aside from left flank pain, she denies any other abdominal pain. States that pain is worse upon deep inspiration but denies any dyspnea at rest. Pain is worse with movement and rated 10 out of 10 in severity. She denies any lacerations. No extremity injury or pain. No alcohol use. REVIEW OF SYSTEMS: Other than the symptoms associated with the present events, the following is reported with regard to recent health: General: (-) fever. HENT: (-) congestion. Respiratory: (-) dyspnea at rest Cardiovascular: (-) retrosternal chest pain. GI: (+) left upper flank pain : (-) urinary complaints. Musculoskeletal: (+) left rib pain Endocrine: (-) generalized weakness. Neurological: (-) localized weakness. (-) numbness/tingling Skin: (-) laceration PAST MEDICAL HISTORY: reviewed as per nursing notes SOCIAL HISTORY: reviewed as per nursing notes, MEDICATIONS: Per nurse's note ALLERGIES: Per nurse's note, reviewed by me PHYSICAL EXAMINATION: GENERALIZED APPEARANCE: well developed, well nourished in moderate distress VITAL SIGNS: Per nurse's note, reviewed by me SKIN: Warm, dry; (-) cyanosis; (-) rash. (-) crepitus NECK: NEXUS criteria negative. no tenderness. FROM. HEAD: (-) scalp swelling, (-) tenderness. EYES: (-) conjunctival pallor, (-) scleral icterus. ENMT: (-) stridor; mucous membranes moist. NECK: (-) tenderness, (-) stiffness, CHEST AND RESPIRATORY: (-) rales, (-) rhonchi, (-) wheezes; breath sounds equal bilaterally. (+) left lower lateral rib tenderness. no step off or deformity. no crepitus. HEART AND CARDIOVASCULAR: (-) irregularity; (-) murmur, (-) gallop. ABDOMEN AND GI: Soft; (+)left upper flank tenderness, (-) guarding, (-) rebound, (-) palpable masses, EXTREMITIES: (-) deformity, (-) edema. (-) extremity tenderness NEURO AND PSYCH: Mental status as above. Cranial nerves grossly intact; strength symmetric. BROOKS x 4. sensation intact. no hip instability DIAGNOSTICS: CT chest/abd/pelvis: report by radiologist reviewed by myself. EMERGENCY DEPARTMENT COURSE AND TREATMENT: Patient's condition improved during Emergency Department evaluation. CT findings noted. Incidental thyroid finding noted and relayed to patient. She is to follow up with pcp regarding this and possible outpatient ultrasound. Pain well controlled, sitting up, breathing unlabored. PLAN AND FOLLOW-UP: Patient received written and verbal instructions regarding this condition. Return to the ED immediately with any new or worsening symptoms. Given discharge precautions. Follow up to be arranged by patient with pcp in 1-2 days for further evaluation. Patient expressed verbal understanding. left ribs Pain Score (Numeric/FACES): 10 - Related Data Allergies Allergy/AdvReac Type Severity Reaction Status Date / Time acetaminophen [From Tylenol] Allergy Unknown Headache Verified 04/08/19 22:31 aspirin Allergy Unknown Swelling Verified 04/08/19 22:31 piroxicam [From Feldene] Allergy Unknown Swelling Verified 04/08/19 22:31 valacyclovir HCl Allergy Unknown Hallucinati Verified 04/08/19 22:31 [From Valtrex] ons surgical tape Allergy Mild Blisters Uncoded 04/08/19 22:31 Home Meds: Home Meds Omeprazole [Prilosec] 20 mg PO DAILY 07/02/13 [History] Pregabalin [Lyrica] 100 mg PO BID 06/13/17 [History] Ergocalciferol (Vitamin D2) [Vitamin D2] 800 unit PO DAILY 10/30/17 [History] Turmeric Root Extract [Turmeric] 500 mg PO DAILY 10/30/17 [History] Vitamin B Complex Vit C No.4 [Super B Complex] 150 mg PO DAILY 10/30/17 [History ] Lidocaine [Lidoderm] 1 each TP BID #12 adh..patch 04/09/19 [Rx] oxyCODONE 5 mg PO Q6HR PRN #10 tab 04/09/19 [Rx] Past Medical History - Past Health History Medical/Surgical History: Denies Medical/Surgical History HEENT History: Reports: Other (See Below) Other HEENT History: wears glasses/contacts Cardiovascular History: Reports: None Respiratory History: Reports: Sleep Apnea Other Respiratory History: Pt on CPAP at home Gastrointestinal History: Reports: GERD Genitourinary History: Reports: None 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 Musculoskeletal History: Reports: Back Pain, Chronic Other Musculoskeletal History: states has herniated discs to back Neurological History: Reports: Migraines Psychiatric History: Reports: None Endocrine/Metabolic History: Reports: Obesity/BMI 30+ Hematologic History: Reports: None Immunologic History: Reports: None Oncologic (Cancer) History: Reports: None Dermatologic History: Reports: None - Infectious Disease History Infectious Disease History: Reports: Measles - Past Surgical History Head Surgeries/Procedures: Reports: None GI Surgical History: Reports: Cholecystectomy Female Surgical History: Reports: Hysterectomy Other Female Surgeries/Procedures: states "partial hysterectomy" Social & Family History - Family History Family Medical History: Noncontributory Cardiac: Reports: Heart Failure, [place] Neurological: Reports: CVA - Tobacco Use Smoking Status *Q: Current Every Day Smoker Years of Tobacco use: 20 Packs/Tins Daily: 1 - Caffeine Use Caffeine Use: Reports: Coffee Caffeine Use Comment: 2drinks/day - Recreational Drug Use Recreational Drug Use: No - Living Situation & Occupation Living situation: Reports: Occupation: Employed ED ROS GENERAL - Review of Systems Review Of Systems: See Below (see Dictation) ED EXAM, GENERAL - Physical Exam Exam: See Below (see dictation) Course - Vital Signs Last Recorded V/S: Last Vital Signs Temp 99.3 F 04/08/19 22:31 Pulse 75 04/09/19 01:40 Resp 16 04/09/19 01:40 BP 139/78 04/09/19 01:40 Pulse Ox 97 04/09/19 01:40 - Orders/Labs/Meds Labs: Laboratory Tests 04/08/19 04/08/19 Range/Units 23:00 23:00 WBC 10.43 (4.0-11.0) K/uL RBC 5.23 (4.30-5.90) M/uL Hgb 16.2 H (12.0-16.0) g/dL Hct 46.9 H (36.0-46.0) % MCV 89.7 (80.0-98.0) fL MCH 31.0 (27.0-32.0) pg MCHC 34.5 (31.0-37.0) g/dL RDW Std Deviation 45.8 (28.0-62.0) fl RDW Coeff of Katty 14 (11.0-15.0) % Plt Count 262 (150-400) K/uL MPV 10.70 (7.40-12.00) fL Neut % (Auto) 54.1 (48.0-80.0) % Lymph % (Auto) 31.7 (16.0-40.0) % [place] % (Auto) 9.4 (0.0-15.0) % Eos % (Auto) 4.4 (0.0-7.0) % Baso % (Auto) 0.4 (0.0-1.5) % Neut # (Auto) 5.6 (1.4-5.7) K/uL Lymph # (Auto) 3.3 H (0.6-2.4) K/uL [place] # (Auto) 1.0 H (0.0-0.8) K/uL Eos # (Auto) 0.5 (0.0-0.7) K/uL Baso # (Auto) 0.0 (0.0-0.1) K/uL Nucleated RBC % 0.0 /100WBC Nucleated RBCs # 0 K/uL Sodium 143 (136-145) mmol/L Potassium 4.1 (3.5-5.1) mmol/L Chloride 106 (98-107) mmol/L Carbon Dioxide 24.0 (21.0-32.0) mmol/L BUN 15 (7.0-18.0) mg/dL Creatinine 0.8 (0.6-1.0) mg/dL Est Cr Clr Drug Dosing 89.08 mL/min Estimated GFR (MDRD) > 60.0 ml/min Glucose 116 H (74-106) mg/dL Calcium 8.6 (8.5-10.1) mg/dL Total Bilirubin 0.3 (0.2-1.0) mg/dL AST 19 (15-37) IU/L ALT 25 (14-63) IU/L Alkaline Phosphatase 67 (46-116) U/L Total Protein 7.4 (6.4-8.2) g/dL Albumin 3.6 (3.4-5.0) g/dL Globulin 3.8 (2.6-4.0) g/dL Albumin/Globulin Ratio 0.9 (0.9-1.6) Lipase 212 (73-393) U/L Meds: Medications Discontinued Medications Generic Name Dose Route Start Last Admin Trade Name Freq PRN Reason Stop Dose Admin Hydromorphone HCl 1 mg 04/08/19 22:44 04/08/19 23:07 Dilaudid IVPUSH 04/08/19 22:45 1 mg ONETIME STA Administration Iopamidol 100 ml 04/09/19 00:24 04/09/19 00:25 Isovue Multipack-370 (76%) IVPUSH 04/09/19 00:25 100 ml ONETIME ONE Administration Ondansetron HCl 4 mg 04/08/19 22:44 04/08/19 23:07 Zofran IVPUSH 04/08/19 22:45 4 mg ONETIME ONE Administration Departure - Departure Time of Disposition: Disposition: Home, Self-Care 01 Condition: Good Clinical Impression: Contusion of rib on left side, Contusion, flank - Discharge Information *PRESCRIPTION DRUG MONITORING PROGRAM REVIEWED*: Not Applicable *COPY OF PRESCRIPTION DRUG MONITORING REPORT IN PATIENT CARI: Not Applicable Prescriptions: oxyCODONE 5 mg PO Q6HR PRN #10 tab PRN Reason: moderate to severe pain Lidocaine [Lidoderm] 1 each TP BID #12 adh..patch Instructions: Contusion, [id number], Chest Contusion, Adult, [id number] Referrals: Vero Harrison CRTT [Primary Care Provider] - Forms: ED Department Discharge Additional Instructions: The following information is given to patients seen in the emergency department who are being discharged to home. This information is to outline your options for follow-up care. We provide all patients seen in our emergency department with a follow-up referral. The need for follow-up, as well as the timing and circumstances, are variable depending upon the specifics of your emergency department visit. If you don't have a primary care physician on staff, we will provide you with a referral. We always advise you to contact your personal physician following an emergency department visit to inform them of the circumstance of the visit and for follow-up with them and/or the need for any referrals to a consulting specialist. The emergency department will also refer you to a specialist when appropriate. This referral assures that you have the opportunity for follow-up care with a specialist. All of these measure are taken in an effort to provide you with optimal care, which includes your follow-up. Under all circumstances we always encourage you to contact your private physician who remains a resource for coordinating your care. When calling for follow-up care, please make the office aware that this follow-up is from your recent emergency room visit. If for any reason you are refused follow-up, please contact the [facility] Emergency Department at and asked to speak to the emergency department charge nurse. Sepsis Event Note - Evaluation Sepsis Screening Result: No Definite Risk - Focused Exam Vital Signs: Vital Signs Temp Pulse Resp BP Pulse Ox 04/09/19 01:40 75 16 139/78 97 04/08/19 22:31 99.3 F 88 24 H 143/104 H 100 Date Exam was Performed: 04/09/19 Time Exam was Performed: 05:11
[2019-04-08 23:27] LABS: BLOOD UREA NITROGEN,BUN 15 mg/dL (7.0-18.0); CHLORIDE,CL 106 mmol/L (98-107); GLUCOSE RANDOM 116 mg/dL (74-106); LIPASE 212 U/L (73-393); POTASSIUM,K 4.1 mmol/L (3.5-5.1); SODIUM,NA 143 mmol/L (136-145)
[2019-04-09] MEDS ORDERED: Iopamidol 755 MG/ML 200 ML Multipack Bottle IVPUSH ONE (00:24)
--- NOTE | 2019-04-09 00:51 | CT ---
INDICATION: Fall, left-sided rib pain COMPARISON: None TECHNIQUE: Contrast enhanced axial CT imaging through the chest. 100 mL Isovue 370 contrast agent was administered intravenously. Sagittal and coronal reconstructions are provided. FINDINGS: There is no displaced rib fracture or chest wall hematoma. There is no pleural effusion, pneumothorax, or pulmonary contusion. The heart is nonenlarged. There is no pericardial effusion. There is normal caliber of the main pulmonary artery and thoracic aorta. There is no mediastinal hematoma. There is no thoracic vertebral compression deformity. There is heterogeneous enlargement of the left thyroid lobe with evidence of a 3.2 cm nodule. No significant abnormality is demonstrated in the visualized upper abdomen. Cholecystectomy clips are noted. IMPRESSION: 1. No evidence of intrathoracic traumatic sequelae. 2. Incidentally noted left thyroid nodule. Correlate with nonemergent thyroid ultrasound. Please note that all CT scans at this facility use dose modulation, iterative reconstruction, and/or weight-based dosing when appropriate to reduce radiation dose to as low as reasonably achievable. Dictated by Prakash Brothers MD @ Apr 09 2019 12:45AM Signed by Dr. Prakash Brothers @ Apr 09 2019 12:51AM
--- NOTE | 2019-04-09 01:00 | CT ---
Indication: Fall, left-sided rib pain Technique: Contrast enhanced axial CT imaging through the abdomen and pelvis. 100 mL Isovue 370 contrast agent was administered intravenously. Sagittal and coronal reconstructions are provided. Comparison: CT abdomen pelvis with contrast 07/02/2017 Findings: There is no significant abnormality of the liver, spleen, pancreas, adrenal glands, and kidneys. Cholecystectomy clips are noted. The portal vein and IVC are patent. There is normal caliber of the abdominal aorta. There is no abdominal lymphadenopathy. The stomach and duodenum are unremarkable. There are no abnormally dilated small bowel loops. The appendix is noninflamed. There is no colonic wall thickening. No inflammatory changes are demonstrated in the mesentery. There is no pneumoperitoneum. The uterus is surgically absent. The ovaries are nonenlarged. The urinary bladder is unremarkable. No displaced fractures are demonstrated in the lumbar spine and pelvis. Degenerative disc disease is noted in the lower lumbar spine. Impression: No acute traumatic sequelae demonstrated in the abdomen and pelvis. Please note that all CT scans at this facility use dose modulation, iterative reconstruction, and/or weight-based dosing when appropriate to reduce radiation dose to as low as reasonably achievable. Dictated by Prakash Brothers MD @ Apr 09 2019 12:59AM Signed by Dr. Prakash Brothers @ Apr 09 2019 12:59AM
[2019-04-09 04:59] VITALS: BP 139/78; PULSE 75
== END 2019-04-09 01:41 | disposition home or self-care (01) ==
LOC: MW.ED 22:27
DX: S30.1XXA Contusion of abdominal wall, initial encounter (principal); S20.212A Contusion of left front wall of thorax, initial encounter; K21.9 Gastro-esophageal reflux disease without esophagitis; E66.9 Obesity, unspecified; Z68.42 Body mass index [BMI] 45.0-49.9, adult; F17.210 Nicotine dependence, cigarettes, uncomplicated; Z88.8 Allergy status to other drugs, medicaments and biological substances; Z91.048 Other nonmedicinal substance allergy status; Z79.899 Other long term (current) drug therapy; W01.0XXA Fall on same level from slipping, tripping and stumbling without subsequent striking against object, initial encounter
CPT/HCPCS: 36415; 71260; 74177; 80053; 83690; 85025; 96374; 96375; 99284; J1170; J2405; Q9967

== ENCOUNTER 2019-06-17 07:48 | Emergency (ER) | payer OTHER ==
--- NOTE | 2019-06-17 08:16 | EDM.PDOC ---
ED HPI GENERAL MEDICAL PROBLEM - General Chief Complaint: Respiratory Problem Stated Complaint: COUGH/UPPER RESPITORY ISSUES Time Seen by Provider: 06/17/19 08:13 Source of Information: Reports: Patient History Limitations: Reports: No Limitations - History of Present Illness INITIAL COMMENTS - FREE TEXT/NARRATIVE: This 44-year-old female presents emergency room with a chief complaint of stating that she has been coughing for almost a month. Patient states she went through 2 rounds of antibiotics and has an inhaler and still has a persistent cough. Patient is allergic to several medications. Patient denies fever and chills. Patient denies being around anyone with COv- 19. Patient has been tested negative x1 for Cov-19 Onset: Gradual Duration: Day(s):, Chronic, Intermittent Location: Reports: Chest Severity: Mild Improves with: Reports: None Worsens with: Reports: None Associated Symptoms: Reports: Cough Chest Pain Score (Numeric/FACES): 4 - Related Data Allergies Allergy/AdvReac Type Severity Reaction Status Date / Time acetaminophen [From Tylenol] Allergy Unknown Headache Verified 04/08/19 22:31 aspirin Allergy Unknown Swelling Verified 04/08/19 22:31 piroxicam [From Feldene] Allergy Unknown Swelling Verified 04/08/19 22:31 valacyclovir HCl Allergy Unknown Hallucinati Verified 04/08/19 22:31 [From Valtrex] ons surgical tape Allergy Mild Blisters Uncoded 04/08/19 22:31 Home Meds: Home Meds Omeprazole [Prilosec] 20 mg PO DAILY 07/02/13 [History] Pregabalin [Lyrica] 100 mg PO BID 06/13/17 [History] Ergocalciferol (Vitamin D2) [Vitamin D2] 800 unit PO DAILY 10/30/17 [History] Turmeric Root Extract [Turmeric] 500 mg PO DAILY 10/30/17 [History] Vitamin B Complex Vit C No.4 [Super B Complex] 150 mg PO DAILY 10/30/17 [History ] Lidocaine [Lidoderm] 1 each TP BID PRN 06/17/19 [History] Past Medical History - Past Health History Medical/Surgical History: Denies Medical/Surgical History HEENT History: Reports: Other (See Below) Other HEENT History: wears glasses/contacts Cardiovascular History: Reports: None Respiratory History: Reports: Sleep Apnea Other Respiratory History: Pt on CPAP at home Gastrointestinal History: Reports: GERD Genitourinary History: Reports: None 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 Musculoskeletal History: Reports: Back Pain, Chronic, Fibromyalgia Other Musculoskeletal History: states has herniated discs to back Neurological History: Reports: Migraines Psychiatric History: Reports: None Endocrine/Metabolic History: Reports: Obesity/BMI 30+ Hematologic History: Reports: None Immunologic History: Reports: None Oncologic (Cancer) History: Reports: None Dermatologic History: Reports: None - Infectious Disease History Infectious Disease History: Reports: Measles - Past Surgical History Head Surgeries/Procedures: Reports: None GI Surgical History: Reports: Cholecystectomy Female Surgical History: Reports: Hysterectomy Other Female Surgeries/Procedures: states "partial hysterectomy" Social & Family History - Family History Family Medical History: Noncontributory Cardiac: Reports: Heart Failure, [place] Neurological: Reports: CVA - Tobacco Use Smoking Status *Q: Current Every Day Smoker Years of Tobacco use: 30 Packs/Tins Daily: 1 - Caffeine Use Caffeine Use: Reports: Coffee Caffeine Use Comment: 2drinks/day - Recreational Drug Use Recreational Drug Use: No - Living Situation & Occupation Living situation: Reports: Occupation: Employed ED ROS GENERAL - Review of Systems Review Of Systems: See Below Constitutional: Reports: No Symptoms HEENT: Reports: No Symptoms Respiratory: Reports: Cough Endocrine: Reports: No Symptoms GI/Abdominal: Reports: No Symptoms : Reports: No Symptoms Musculoskeletal: Reports: No Symptoms Skin: Reports: No Symptoms Neurological: Reports: No Symptoms Psychiatric: Reports: No Symptoms Hematologic/Lymphatic: Reports: No Symptoms Immunologic: Reports: No Symptoms ED EXAM, GENERAL - Physical Exam Exam: See Below Exam Limited By: No Limitations General Appearance: Alert, WD/WN, No Apparent Distress Eye Exam: Bilateral Eye: Normal Fundi, Normal Inspection, PERRL Ears: Normal External Exam, Normal Canal, Hearing Grossly Normal, Normal TMs Ear Exam: Bilateral Ear: Auricle Normal, Canal Normal, TM normal Nose: Normal Inspection, Normal Mucosa, No Blood Throat/Mouth: Normal Inspection, Normal Lips Head: Atraumatic, Normocephalic Neck: Normal Inspection, Supple, Non-Tender Respiratory/Chest: No Accessory Muscle Use, Chest Non-Tender Cardiovascular: Normal Peripheral Pulses, Regular Rate, Rhythm, No JVD, No Murmur GI/Abdominal: Normal Bowel Sounds, Soft, Non-Tender (Female) Exam: Deferred Rectal (Female) Exam: Deferred Back Exam: Normal Inspection, Full Range of Motion Extremities: Normal Inspection, Normal Range of Motion Neurological: Alert, Oriented, CN II-XII Intact, Normal Cognition, Normal Reflexes, No Motor/Sensory Deficits Psychiatric: Normal Affect, Normal Mood Skin Exam: Warm, Dry, Intact, Normal Color, No Rash Lymphatic: No Adenopathy Course - Vital Signs Last Recorded V/S: Last Vital Signs Temp 96.9 F 06/17/19 08:01 Pulse 88 06/17/19 08:01 Resp 16 06/17/19 08:01 BP 149/82 H 06/17/19 08:01 Pulse Ox 96 06/17/19 08:01 - Orders/Labs/Meds Orders: Active Orders 24 hr Category Date Time Status Chest w Cont [CT] Stat Exams 06/17/19 08:17 Ordered CBC WITH AUTO DIFF [HEME] Stat Lab 06/17/19 08:16 Ordered COMPREHENSIVE METABOLIC PN,CMP [CHEM] Stat Lab 06/17/19 08:17 Ordered Departure - Departure Time of Disposition: 08:26 Disposition: Home, Self-Care 01 Condition: Good Clinical Impression: URI, acute - Discharge Information Instructions: Upper Respiratory Infection, Adult, [id number] Referrals: Vero Harrison, [employer]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 [Primary Care Provider] - Forms: ED Department Discharge Sepsis Event Note - Evaluation Sepsis Screening Result: No Definite Risk - Focused Exam Vital Signs: Vital Signs Temp Pulse Resp BP Pulse Ox 06/17/19 08:01 96.9 F 88 16 149/82 H 96 Date Exam was Performed: 06/17/19 Time Exam was Performed: 08:29 - My Orders Last 24 Hours: My Active Orders 06/17/19 08:16 CBC WITH AUTO DIFF [HEME] Stat 06/17/19 08:17 Chest w Cont [CT] Stat COMPREHENSIVE METABOLIC PN,CMP [CHEM] Stat - Assessment/Plan Last 24 Hours: My Active Orders 06/17/19 08:16 CBC WITH AUTO DIFF [HEME] Stat 06/17/19 08:17 Chest w Cont [CT] Stat COMPREHENSIVE METABOLIC PN,CMP [CHEM] Stat
[2019-06-17 08:59] LABS: BLOOD UREA NITROGEN,BUN 11 mg/dL (7.0-18.0); CARBON DIOXIDE,CO2 28.2 mmol/L (21.0-32.0); CHLORIDE,CL 106 mmol/L (98-107); GLUCOSE RANDOM 95 mg/dL (74-106); POTASSIUM,K 4.1 mmol/L (3.5-5.1); SODIUM,NA 143 mmol/L (136-145)
[2019-06-17] MEDS ORDERED: Iopamidol 755 MG/ML 200 ML Multipack Bottle IVPUSH ONE (09:58)
--- NOTE | 2019-06-17 10:09 | CT ---
CT chest Technique: Multiple axial sections through the chest were obtained. Intravenous contrast was utilized. Comparison: Prior CT chest of 04/09/19. Findings: Areas of diminished enhancement are noted within the thyroid gland. Findings have increased in prominence from previous exam. Slight substernal extension is seen of the left lobe which is felt compatible with goitrous change. Mediastinum and hilar regions show no adenopathy. Very minimal coronary artery calcification is noted. No pericardial thickening is seen. Surgical clips are noted from prior cholecystectomy. Nothing acute is seen within the visualized upper abdominal structures. No axillary adenopathy is identified. Lung window settings were reviewed. No acute parenchymal process is seen. No pleural effusions or pneumothorax is seen. No bronchial wall thickening is identified. Bone window settings were reviewed. Mild scattered disc space narrowing within the mid and lower thoracic spine with mild scattered anterior osteophytes are seen. No acute osseous finding is appreciated. Impression: 1. Abnormal thyroid gland slightly which is more prominent than on previous exam. Nonemergent thyroid ultrasound is recommended. 2. Other findings believed to be incidental as noted above. Nothing acute is appreciated. Diagnostic code #3 Study was dictated in MDT
[2019-06-17 10:42] VITALS: BP 140/81; PULSE 81
== END 2019-06-17 10:42 | disposition home or self-care (01) ==
LOC: MW.ED 07:48
DX: J06.9 Acute upper respiratory infection, unspecified (principal); K21.9 Gastro-esophageal reflux disease without esophagitis; F17.210 Nicotine dependence, cigarettes, uncomplicated; Z88.6 Allergy status to analgesic agent; Z91.09 Other allergy status, other than to drugs and biological substances; Z79.899 Other long term (current) drug therapy
CPT/HCPCS: 36415; 71260; 80053; 85025; 99284; Q9967